=== PATIENT | female | born 1970 | race African-American/Black ===

== ENCOUNTER 2016-09-03 15:38 | Emergency (ER) | payer OTHER ==
--- NOTE | 2016-09-03 16:26 | PROVIDER DOCUMENTATION ---
HPI-General Adult - General Chief Complaint: General Adult Stated Complaint: ABNORMAL XRAY Time Seen by Provider: 09/03/16 16:11 Source: patient Allergies/Adverse Reactions: Patient Allergies Allergy/AdvReac Type Severity Reaction Status Date / Time ketorolac tromethamine * Allergy Intermediate HIVES Verified 09/03/16 16:02 [From Toradol] pregabalin [From Lyrica] Allergy Intermediate SWELLING Verified 09/03/16 16:02 sulfamethoxazole Allergy Intermediate HIVES Verified 09/03/16 16:02 [From Bactrim] tramadol HCl * [From Ultram] Allergy Intermediate HIVES Verified 09/03/16 16:02 trimethoprim [From Bactrim] Allergy Intermediate HIVES Verified 09/03/16 16:02 amlodipine besylate * AdvReac Intermediate SWELLING Verified 08/14/16 16:45 [From Norvasc] morphine AdvReac Intermediate HEADACHE Verified 09/03/16 16:02 Home Medications: Home Medication List Medication Instructions Recorded Confirmed Last Taken Type Estradiol [Estrace] 0.5 mg PO QAM 07/26/13 09/03/16 09/03/16 09:00 History Parathyroid Hormone [Natpara] 50 mcg SQ QPM 09/14/15 09/03/16 09/03/16 09:00 History Ergocalciferol (Vitamin D2) 50,000 unit PO Q7D #4 capsule 11/18/15 09/03/16 09:00 Rx [Vitamin D] Trazodone [Desyrel] 100 mg PO QHS PRN #20 tablet 02/11/16 09/03/16 09/02/16 21: 00 Rx Prochlorperazine Maleate 5 mg PO Q4H PRN PRN #10 tablet 06/01/16 09/03/16 09:00 Rx [Compazine] Amlodipine [Norvasc] 5 mg PO DAILY #30 tablet 06/07/16 09/03/16 09/03/16 09:00 Rx Carvedilol [Coreg] 25 mg PO BID #60 tablet 07/12/16 09/03/16 09/03/16 09:00 Rx Hydralazine [Apresoline] 50 mg PO TID #90 tablet 07/12/16 09/03/16 09/03/16 09: 00 Rx Tizanidine HCl [Zanaflex] 4 mg PO BID 07/24/16 09/03/16 09/03/16 14:00 History Alprazolam [Xanax] 0.5 mg PO Q12H PRN PRN #60 tablet 08/01/16 09/03/16 09/02/16 21:00 Rx Amitriptyline [Elavil] 25 mg PO QHS #30 tablet 08/01/16 09/03/16 09/03/16 09:00 Rx Metoclopramide [Reglan] 10 mg PO Q6HR #60 tablet 08/01/16 09/03/16 09/03/16 09: 00 Rx Calcitriol [Rocaltrol] 0.25 microgm PO DAILY #60 capsule 08/07/16 09/03/1609/03 09:00 Rx Calcium Acetate [Phoslo] 1,334 mg PO TID CC #60 tablet 08/07/16 09/03/16 09:00 Rx Pantoprazole [Protonix] 40 mg PO BID #60 tablet 08/07/16 09/03/16 09/02/16 21: 00 Rx Folic Acid 1 mg PO DAILY #30 tablet 08/22/16 09/03/16 09/03/16 09:00 Rx Hydrocodone/Acetaminophen [[place] 1 each PO Q4H PRN #30 tablet 08/22/16 09/03/16 09/03/16 09:00 Rx 7.5-325 Tablet] Pantoprazole [Protonix] 40 mg PO BID@0700,2100 #60 tablet 08/22/16 09/03/16 09:00 Rx Sucralfate [Carafate Liquid] 1 gm PO Q6H #120 cap 08/22/16 09/03/16 09/03/16 14: 00 Rx - History of Present Illness -Gen Adult Nature of Presenting Problems: 46 yof sent from [facility] for bleeding on left kidney. Pt has had some lower back pain to left lower back for a few days now. Pain continues to get worse. Pt has chronic renal failure on dialysis. Pt has left subclavian cath in place. Pt has some left CVA tenderness on exam. Location of Pain/Injury: reports: back Pain Radiation: reports: flank (L) Quality of Pain: reports: aching Severity: reports: moderate Onset/Duration: reports: 1 week ago Timing: reports: still present Context/Activities at Onset: reports: none. denies: light activity, moderate activity, vigorous activity, recent emotional stress, recent physical stress, recent trauma history, possible bad food, cold exposure, eating, out of country travel, rest, sleep, sexual activity, other Modifying Factors: improves with: nothing. worse with: analgesics, antacids, breathing, cold/heat therapy, coughing, defecating, eating, exercise, immobilization, lying down, massage, movement, other medication, palpation, rest , urinating, vomiting, other Associated Symptoms: reports: nausea. denies: denies symptoms, anxiety, arm pain, back/neck pain, chest pain, constipation, cough, diaphoresis, diarrhea, dizziness, EENT symptoms, fatigue, fever/chills, genitourinary problems, headaches, heartburn, joint pain, loss of appetite, malaise, muscle aches, sinus congestion/drainage, rash, seizure, shortness of breath, sensory/motor loss, pain with inspiration, swelling/mass in abdomen, syncope, vomiting, weakness, trouble walking, other Similar Symptoms Previously?: No Recently seen or treated by another doctor?: Yes (Recently seen launderer hand) - Sickle Cell Pain Related Context Sickle Cell Pain Location: denies: none, head, face, mouth, neck, chest, upper extremity, hand(s), abdomen, back, pelvis, genitalia, lower extremity, feet, upper body, lower body, generalized, other Review of Systems - Adult - REVIEW OF SYSTEMS - ADULT Constitutional: reports: see HPI. denies: no symptoms reported, chills, fever, fatique, night sweats, weight gain, weight loss, other Eyes: reports: no symptoms reported. denies: see HPI, discharge, dry eyes, decreased vision, blurred vision, double vision, eye pain, redness, other Ears, Nose, Mouth & Throat: reports: no symptoms reported. denies: see HPI, ear discharge, ear pain, hearing loss, tinnitus, epistaxis, sinus problem, nose pain, loose teeth, mouth/dental pain, mouth swelling, hoarseness, throat pain, throat swelling, other Cardiovascular: reports: no symptoms reported. denies: see HPI, chest pain, edema, heart murmur, irregular heart rate, orthopnea, palpitations, poor circulation, PND, syncope, other Respiratory: reports: no symptoms reported. denies: see HPI, chronic cough, cough, dyspnea on exertion, excessive sputum production, hemoptysis, pleurisy, shortness of breath, wheezing, other Gastrointestinal: reports: see HPI, nausea. denies: no symptoms reported, abdominal pain, hematemesis, constipation, diarrhea, difficulty swallowing, frequent heartburn, poor appetite, rectal bleeding, vomiting, other Genitourinary: reports: see HPI, flank pain. denies: no symptoms reported, dysuria, discharge, frequency, frequent UTI's, hematuria, hesitency, incontinence, urinary retention, urgency, other Musculoskeletal: reports: see HPI, back pain. denies: no symptoms reported, bone pain, frequent leg cramps, joint pain, joint swelling, muscle aches, muscle weakness, neck pain, other Integumentary: reports: no symptoms reported. denies: see HPI, hives, hair loss , itching, mole changes, nail changes, rash, skin sores/ulcer, skin thickening, other Neurological: reports: no symptoms reported. denies: see HPI, ataxia, dizziness /vertigo, headache/migraines, loss of balance, numbness, paresthesia, seizure, slurred speech, syncope, tremors, other Psychiatric: reports: no symptoms reported. denies: see HPI, anxiety, anti- depressant use, alcohol/drug dependence, depression, emotional problems, insomnia, panic attacks, suicidal thoughts, other Endocrine: reports: no symptoms reported. denies: see HPI, change in skin pigment, excessive sweating, goiter, cold intolerance, heat intolerance, increased hunger, increased thirst, polyuria, other All Other Systems: Reviewed and Negative Past History - Adult - PAST MEDICAL HISTORY-ADULT Review of Records: reports: Old Records Reviewed, Nursing Assessment Review, Medications Reviewed, Social history reviewed & non-contributory. Cardiovascular: reports: HTN Gastrointestinal: reports: GERD, ulcer Genitourinary: reports: dialysis (T,Th, Sat), kidney disease Musculoskeletal: reports: chronic pain, intervertebral disc disease Neurological: reports: headaches/migraines Endocrine/Immune: reports: Diabetes - PRIOR SURGERIES/PROCEDURES Surgical/Procedure History: reports: cholecystectomy, hysterectomy, , hernia repair, orthopedic (extremity), gastric bypass - PRIOR HOSPITALIZATIONS Prior Hospitalizations: reports: for other non-related - IMMUNIZATION STATUS Childhood Immunizations: See Nurse Assessment Flu Vaccine: See Nurse Assessment - FAMILY HISTORY Family History: reviewed, not pertinent Physical Exam-General - PHYSICAL EXAM-ADULT Initial Vital Signs Reviewed: Yes - CONSTITUTIONAL General Appearance: appears well, alert, no apparent distress. negative: mild distress, moderate distress, severe distress, cachetic, obese, thin, anxious, lethargic, slow to respond, obtunded, combative, other - EYES Eyes: PERRL/EOMI, pink conjunctivae, fundi clear, no AV nicking. negative: anisocoria, conjuctival exudate, EOM palsy, meningismus, pale conjunctivae, photophobia, sclera injected, scleral icterus, subconjunctival hemorrhage, sunken eyes, other - HEAD, EARS, NOSE, MOUTH & THROAT HENMT: normocephalic/atraumatic, moist mucous membranes, normal ENT inspection, TMs normal, pharynx normal. negative: angioedema, dental decay, hearing deficit , pharyngeal erythema, tonsillar exudate, TM abnormal, TM obscurred by cerumen, frontal tenderness, maxillary tenderness, other - NECK Neck: non-tender, full range of motion, supple, normal inspection. negative: Brudzinski's sign, carotid bruit, C-spine tenderness, limited range of motion, lymphadenopathy, meningismus, trachial deviation, tender lateral, tender midline , thyromegaly, other - RESPIRATORY Respiratory: chest non-tender, lungs clear, normal breath sounds, no pleuratic chest pain, no respiratory distress, no accessory muscle use. negative: respiratory distress, decreased breath sounds, accessory muscle use, crackles, rales, rhonchi, stridor, wheezing, dull on percussion, prolonged expiration, pain on inspiration, plerual rub, retractions, splinting, decreased rate, increased rate, crepitus, other - CARDIOVASCULAR Cardiovascular: normal peripheral pulses, regular rate, rhythm, no edema, no gallop, no JVD, no murmur. negative: JVD, bradycardia, tachycardia, diastolic murmur, systolic murmur, gallop/S3, gallop/S4, extra beats, friction rub, irregularly irregular, PMI displaced laterally, other - CHEST (BREASTS) Chest/Breast: deferred. negative: normal breast inspection, no masses/lumps, no tenderness, nipple discharge, tenderness, mass/lump noted, other - GASTROINTESTINAL (ABDOMEN) Abdominal Exam: normal bowel sounds, non tender, soft, no organomegaly, no pulsatile mass. negative: abdominal bruit, abnormal bowel sounds, distended, guarding, rigid, rebound, tenderness, hernia, mass, hepatomegaly, spleenomegaly , McBurney's point tenderness, Ayala's sign, obturator sign, prominent aortic pulsations, psoas, Rovsing's sign, other - GENITOURINARY Female Genitalia/Pelvic Exam: deferred. negative: external exam normal, speculum exam normal, bimanual exam normal, no cerv. motion tender, no masses, active bleeding, blood, cervicitis, discharge, herpes-like ulcerations, lesions , mass, tender w/ cervical motion, tender adnexa, tender uterus, ulcers, other Rectal Exam: deferred. negative: normal exam, normal rectal tone, black stool, blood streaked stool, decreased tone, hemorrhoids, mass, prostate enlarged/ nodule, tenderness, other Hemoccult Exam: deferred - LYMPHATIC Lymphatic: no adenopathy. negative: axilla node tender, cervical node tenderness, inguinal node tender, enlargement, striations, streaking, other - MUSCULOSKELETAL Back Exam: normal inspection, CVA tenderness. negative: no CVA tenderness, no vertebral tenderness, decreased range of motion, ecchymosis, kyphosis, lordosis , muscle spasm, scoliosis, swelling, vertebral tenderness, other Extremity: normal range of motion, non-tender, normal gait, normal inspection, no pedal edema, no calf tenderness, normal capillary refill. negative: pelvis stable, abnormal NV exam, calf tenderness, deformity, erythema, inflammation, joint effusion, pulse deficit, pedal edema, slow capillary refill, swelling, tenderness, other Peripheral Pulses: radial (R): 2+, radial (L): 2+, dorsalis-pedis (R): 2+, dorsalis-pedis (L): 2+ - SKIN Integumentary: normal color, normal turgor, warm/dry. negative: abrasion(s), blanching, cyanosis, diaphoresis, decubitus, dependent lividity, ecchymosis, embolic lesions, erythema, signs of IVDA, jaundice, laceration(s), mottled, pallor, petechiae, purpura, rash, swelling, tenderness, warm, zoster-like rash, other - NEUROLOGIC Neurologic: grossly normal, no motor/sensory deficits. negative: abnormal cerebellar tests, abnormal brinell tester II-XII, abnormal gait, aphasia, EOM palsy, facial droop, focal weakness, motor weakness, sensory deficit, negative romberg' s sign, positive romberg's sign, other - PSYCHIATRIC Psych/Mental Status: normal mood/affect, normal thought content, normal thought process, oriented x 3. negative: disoriented x 3, anxious, disheveled, depressed affect, paranoid, tearful, other Progress - PLAN OF CARE/RESULTS Progress/Plan/Lab Results: Laboratory Tests 09/03/16 09/03/16 09/03/16 16:27 16:27 16:27 WBC 10.61 RBC 2.86 L Hgb 8.4 L Hct 26.5 L MCV 92.7 MCH 29.4 MCHC 31.7 L RDW Std Deviation 14.9 H Plt Count 312 MPV 8.6 Immature Gran % (Auto) 1.3 H Neut % (Auto) 72.3 Lymph % (Auto) 16.4 L Rice % (Auto) 7.7 Eos % (Auto) 1.9 Baso % (Auto) 0.4 Immature Gran # (Auto) 0.14 H Neut # (Auto) 7.67 H Lymph # (Auto) 1.74 Rice # (Auto) 0.82 H Eos # (Auto) 0.20 Baso # (Auto) 0.04 PT 11.3 INR 1.07 PTT (Actin FS) 29.2 Sodium 138 Potassium 4.3 Chloride 96 L Carbon Dioxide 26 Anion Gap 16 BUN 42 H Creatinine 7.5 H Estimated GFR/1.73 m2 7 BUN/Creatinine Ratio 6 Glucose 95 Calculated Osmolality 286 Calcium 7.8 L Total Bilirubin 0.36 AST 22 ALT 16 Alkaline Phosphatase 53 Total Protein 6.8 Albumin 3.8 Globulin 3.0 Albumin/Globulin Ratio 1.3 Orders Category Date Time Status IV Insertion ORDERED Care 09/03/16 16:[address] ABD WITH IV CONTRAST ONLY [CT] Stat Exams 09/03/16 19:05 Taken CBC WITH ELECTRONIC DIFF [HEME] Stat Lab 09/03/16 16:27 Completed COMPREHENSIVE METABOLIC PANEL [CHEM] Stat Lab 09/03/16 16:27 Completed PROTIME WITH INR [COAG] Stat Lab 09/03/16 16:27 Completed PTT [COAG] Stat Lab 09/03/16 16:27 Completed Hydromorphone [Dilaudid] Med 09/03/16 21:06 Once 1 mg IV NOW ONE Ondansetron [Zofran] Med 09/03/16 21:06 Once 4 mg IV NOW ONE Vital Signs Temp Pulse Resp BP Pulse Ox 09/03/16 15:51 98.9 F 106 H 20 149/81 99 ketorolac tromethamine * [From Toradol] Allergy (Intermediate, Verified 16:02) HIVES pregabalin [From Lyrica] Allergy (Intermediate, Verified 09/03/16 16:02) SWELLING sulfamethoxazole [From Bactrim] Allergy (Intermediate, Verified 09/03/16 16:02) HIVES tramadol HCl * [From Ultram] Allergy (Intermediate, Verified 09/03/16 16:02) HIVES trimethoprim [From Bactrim] Allergy (Intermediate, Verified 09/03/16 16:02) HIVES amlodipine besylate * [From Norvasc] Adverse Reaction (Intermediate, Verified 16:45) SWELLING morphine Adverse Reaction (Intermediate, Verified 09/03/16 16:02) HEADACHE Estradiol [Estrace] 0.5 mg PO QAM 07/26/13 Parathyroid Hormone [Natpara] 50 mcg SQ QPM 09/14/15 Ergocalciferol (Vitamin D2) [Vitamin D] 50,000 unit PO Q7D #4 capsule 11/18/15 Trazodone [Desyrel] 100 mg PO QHS PRN #20 tablet 02/11/16 Prochlorperazine Maleate [Compazine] 5 mg PO Q4H PRN PRN #10 tablet 06/01/16 Amlodipine [Norvasc] 5 mg PO DAILY #30 tablet 06/07/16 Carvedilol [Coreg] 25 mg PO BID #60 tablet 07/12/16 Hydralazine [Apresoline] 50 mg PO TID #90 tablet 07/12/16 Tizanidine HCl [Zanaflex] 4 mg PO BID 07/24/16 Alprazolam [Xanax] 0.5 mg PO Q12H PRN PRN #60 tablet 08/01/16 Amitriptyline [Elavil] 25 mg PO QHS #30 tablet 08/01/16 Metoclopramide [Reglan] 10 mg PO Q6HR #60 tablet 08/01/16 Calcitriol [Rocaltrol] 0.25 microgm PO DAILY #60 capsule 08/07/16 Calcium Acetate [Phoslo] 1,334 mg PO TID CC #60 tablet 08/07/16 Pantoprazole [Protonix] 40 mg PO BID #60 tablet 08/07/16 Folic Acid 1 mg PO DAILY #30 tablet 08/22/16 Hydrocodone/Acetaminophen [[place] 7.5-325 Tablet] 1 each PO Q4H PRN #30 tablet Pantoprazole [Protonix] 40 mg PO BID@0700,2100 #60 tablet 08/22/16 Sucralfate [Carafate Liquid] 1 gm PO Q6H #120 cap 08/22/16 Laboratory 09/03/16 09/03/16 09/03/16 16:27 16:27 16:27 WBC 10.61 RBC 2.86 L Hgb 8.4 L Hct 26.5 L MCV 92.7 MCH 29.4 MCHC 31.7 L RDW Std Deviation 14.9 H Plt Count 312 MPV 8.6 Immature Gran % (Auto) 1.3 H Neut % (Auto) 72.3 Lymph % (Auto) 16.4 L Rice % (Auto) 7.7 Eos % (Auto) 1.9 Baso % (Auto) 0.4 Immature Gran # (Auto) 0.14 H Neut # (Auto) 7.67 H Lymph # (Auto) 1.74 Rice # (Auto) 0.82 H Eos # (Auto) 0.20 Baso # (Auto) 0.04 PT 11.3 INR 1.07 PTT (Actin FS) 29.2 Sodium 138 Potassium 4.3 Chloride 96 L Carbon Dioxide 26 Anion Gap 16 BUN 42 H Creatinine 7.5 H Estimated GFR/1.73 m2 7 BUN/Creatinine Ratio 6 Glucose 95 Calculated Osmolality 286 Calcium 7.8 L Total Bilirubin 0.36 AST 22 ALT 16 Alkaline Phosphatase 53 Total Protein 6.8 Albumin 3.8 Globulin 3.0 Albumin/Globulin Ratio 1.3 - CT/MRI 1 CT Study: Abdomen Impression: Abnormal Comparison with other Films: no changes (Left Renal sub-capsular Hematoma no changes from previous PET/CT done previously today by DEISY. Read by Radiologist) Departure - Departure Time of Disposition Order: 21:07 DIAGNOSIS: Renal hematoma, left Qualifiers: Encounter type: initial encounter Qualified Code(s): S37.012A - Minor contusion of left kidney, initial encounter Disposition: HOME 01 Certified Medical Emergency: Emergent Condition: Stable Additional Instructions: Call Primary Care Provider Tuesday to schedule follow up. ED Follow Up Instructions: You have been treated by a care provider in the Emergency Department. These instructions are being provided to you so you can have an understanding of how to care for yourself upon discharge. Upon discharge from the Emergency Department, you are responsible for making arrangements for follow-up care by a physician of your choice. Take all prescribed medications as directed. Return to the Emergency Department immediately for any new or worsening symptoms. You may call the Physician Referral phone number at [phone] to obtain a list of Physicians who are taking new patients. Referrals: Venkat Almeida MD [Primary Care Provider] - Instructions: Hematoma, [id number] Attestation - Physician/ MENDOZA Attestation Patient care was provided by Advanced Practice Provider:: Yes Advanced Practice Provider:: Kenneth Lopez Advanced Practice Provider documentation review:: The Mid-level provider documentation, treatment plan and medical decision making was reviewed by the physician who agrees with all treatment and medical decision making by the P.
[2016-09-03 16:43] LABS: MANUAL DIFF NEEDED? NO
[2016-09-03 16:55] LABS: INR 1.07; PROTIME 11.3 Seconds (9.2-11.7); PTT 29.2 Seconds (22.0-36.0)
[2016-09-03 17:07] LABS: ALBUMIN 3.8 g/dL (3.5-5.0); CALCIUM 7.8 mg/dL (8.8-10.2); POTASSIUM 4.3 mmol/L (3.5-5.1); TOTAL BILIRUBIN 0.36 mg/dL (0.20-1.00); TOTAL PROTEIN 6.8 g/dL (6.3-8.3)
[2016-09-03 17:54] LABS: BASO% 0.4 % (0.0-0.8); EOS% 1.9 % (0.0-10.0); HEMATOCRIT 26.5 % (37.0-47.0); HEMOGLOBIN 8.4 g/dL (12.0-16.0); IMM GRAN# 0.14 X1000 (0.0-0.04); IMM GRAN% 1.3 % (0.0-0.5); LYMPH# 1.74 X1000 (1.2-3.4); LYMPH% 16.4 % (20.5-51.1); MCH 29.4 PG (27-31); MCHC 31.7 g/dL (33-37); MCV 92.7 FL (81-99); MONO# 0.82 X1000 (0.11-0.59); MONO% 7.7 % (1.7-9.3); MPV 8.6 FL (7.4-10.4); NEUT% 72.3 % (42.2-75.2); PLT 312 X1000 (130-400); RBC 2.86 XMIL (4.2-5.4)
[2016-09-03] MEDS ORDERED: DILAUDID IV ONE (21:06)
[2016-09-03] MEDS ORDERED: ZOFRAN IV ONE (21:06)
[2016-09-03] MEDS ORDERED: DILAUDID IM ONE (21:56)
[2016-09-03] MEDS ORDERED: ZOFRAN ODT PO ONE (21:56)
[2016-09-03 21:57] VITALS: BP 151/101
--- NOTE | 2016-09-04 10:28 | Diag Imaging Result Document ---
PROCEDURE NAME: CT ABD WITH IV CONTRAST ONLY - 09/03/2016 CT OF THE ABDOMEN WITH INTRAVENOUS CONTRAST: FINDINGS: There is atelectasis present in the right posterior lower lobe which is somewhat improved since the previous thoracic CT of 08/16/2016. The left lobe is almost completely cleared. There is a large subcapsular hematoma in the left kidney. Some of this may extend into the perinephric space. The enhancing rim of renal parenchyma is seen anteromedially. The hematoma measures at least 8.4 cm in transverse dimension on image 48. The right kidney is markedly atrophic in appearance. There are postsurgical changes in the stomach and gallbladder fossa. The common bile duct measures over 9 mm but no definite stones or masses are demonstrated. There is a vena cava filter. The appendix is normal in appearance. There is a large amount of stool present in the right colon. The left perinephric/subcapsular hematoma was not present on 08/16/2016. Compared to the previous PET-CT of 09/03/2016 which was performed at 1240 hours, there has been no appreciable change in the hematoma. IMPRESSION: Left subcapsular hematoma. Constipation.
== END 2016-09-03 22:09 | disposition home or self-care (01) ==
LOC: ED 15:38
DX: S37.012A Minor contusion of left kidney, initial encounter (principal); M54.5 Low back pain; R10.9 Unspecified abdominal pain; R11.0 Nausea; G89.29 Other chronic pain; R51 Headache; E11.9 Type 2 diabetes mellitus without complications; Z79.899 Other long term (current) drug therapy; I12.0 Hypertensive chronic kidney disease with stage 5 chronic kidney disease or end stage renal disease; N18.6 End stage renal disease; K21.9 Gastro-esophageal reflux disease without esophagitis; Z99.2 Dependence on renal dialysis; Z98.84 Bariatric surgery status
CPT/HCPCS: 74160; 80053; 85025; 85610; 85730; J1170; Q9967

== ENCOUNTER 2016-09-22 11:20 | Day surgery (SDC) | payer OTHER ==
[2016-09-22] MEDS ORDERED: 1/2 NS 500 ML ONE (12:06)
[2016-09-22 12:47] LABS: MANUAL DIFF NEEDED? NO
[2016-09-22 12:49] LABS: BASO% 0.5 % (0.0-0.8); EOS# 0.26 X1000 (0.0-0.7); EOS% 4.7 % (0.0-10.0); HEMATOCRIT 34.4 % (37.0-47.0); HEMOGLOBIN 10.8 g/dL (12.0-16.0); IMM GRAN# 0.02 X1000 (0.0-0.04); IMM GRAN% 0.4 % (0.0-0.5); LYMPH# 1.31 X1000 (1.2-3.4); LYMPH% 23.9 % (20.5-51.1); MCH 29.1 PG (27-31); MCHC 31.4 g/dL (33-37); MCV 92.7 FL (81-99); MONO# 0.32 X1000 (0.11-0.59); MONO% 5.8 % (1.7-9.3); MPV 9.4 FL (7.4-10.4); NEUT% 64.7 % (42.2-75.2); PLT 141 X1000 (130-400); RBC 3.71 XMIL (4.2-5.4)
[2016-09-22 13:08] LABS: IRON SATURATION 37 %; TIBC 229 ug/dL; TOTAL IRON 84 ug/dL (49-151); UNBOUND IRON 145 ug/dL (112-346)
[2016-09-22 13:12] LABS: INR 1.04; PROTIME 10.6 Seconds (9.2-11.7)
[2016-09-22] MEDS ORDERED: MYLICON DROPS (DOSE) MISC ONE (13:38)
[2016-09-22] MEDS ORDERED: FENTANYL ONE (14:17)
[2016-09-22] MEDS ORDERED: DIPRIVAN 1% ONE (14:18)
[2016-09-22] MEDS ORDERED: XYLOCAINE-MPF 2% ONE (15:56)
[2016-09-22] MEDS ORDERED: ZOFRAN ONE (15:56)
[2016-09-22 16:17] VITALS: BP 152/98
--- NOTE | 2016-09-23 03:32 | OPERATIVE NOTE ---
PROCEDURE DATE: 09/22/2016 REFERRING PHYSICIAN: Venkat Almeida MD. PRIMARY CARE PHYSICIAN: Jasmina Freeman MD. INDICATIONS FOR PROCEDURE: 1. Progressive anemia despite transfusion. 2. Dysphasia. 3. Epigastric pain. 4. History of a gastrojejunal ulcer. 5. History of Francisco [id number] gastric bypass. 6. History of bleeding AVMs on recent endoscopy. PROCEDURE PERFORMED: Esophagogastroduodenoscopy. CONSENT: Informed consent was obtained from the patient prior to the procedure. The risks, benefits, and alternatives were discussed. MEDICATION: The patient received monitored anesthesia care. It should be noted that the patient had large sedation requirements and aroused easily throughout the procedure. PERFORMING PHYSICIAN: Meghana Hernandez MD. ASSISTANTS: 1. ST. Jessica 2. Rubi Scales RN. 3. Camilla Romero CRNA. 4. Rosalio Rutherford MD (anesthesia). COMPLICATIONS: There were no complications. ESTIMATED BLOOD LOSS: Less than 1 mL. SPECIMENS REMOVED: None. FINDINGS: After sedation was achieved, the upper endoscope was inserted to the mid efferent jejunum. The hypopharynx and tubular esophagus appeared endoscopically normal. The GE junction was measured at 35 cm from the incisors. The gastric pouch spanned from 35-42 cm. In the pouch, there was nonerosive gastritis. There was no stigmata of bleeding. The gastrojejunal ulcer that was previously identified was present. It should be noted that the anastomosis remained severely inflamed but the actual ulcer had decreased in size by approximately 50%. There was new jejunitis in the afferent limb of the jejunum. The efferent limb appeared grossly normal. After the exam was complete, we were attempting to take biopsies when the patient aroused during sedation. It was elected to withdraw the scope without proceeding with biopsy. The lumen was decompressed and the scope was removed without incident. IMPRESSION: 1. Gastrojejunal anastomotic ulcer. 2. Nonerosive gastritis. 3. Nonerosive jejunitis. RECOMMENDATION: 1. Continue Protonix 40 mg daily. 2. I will repeat a course of Carafate 1 g p.o. 4 times a day for 8 weeks only in light of her renal disease. 3. We will proceed with a colonoscopy as previously scheduled.
--- NOTE | 2016-09-23 03:40 | OPERATIVE NOTE ---
PROCEDURE DATE: 09/22/2016 REFERRING PHYSICIAN: Venkat Almeida MD. PRIMARY CARE PHYSICIAN: Jasmina Freeman MD. INDICATION FOR PROCEDURE: 1. Anemia. 2. Epigastric pain. 3. History of colon polyps. 4. History of bleeding AVMs. PROCEDURE PERFORMED: Colonoscopy with biopsy. CONSENT: Informed consent was obtained from the patient prior to the procedure. The risks, benefits, and alternatives were discussed. MEDICATION: The patient received monitored anesthesia care. It should be noted that there was extreme difficulty in maintaining sedation throughout the procedure. PERFORMING PHYSICIAN: Meghana Hernandez MD. ASSISTANTS: 1. ST Jessica. 2. Rubi Scales RN. 3. Camilla Romero CRNA. 4. Rosalio Rutherford MD (anesthesia). COMPLICATIONS: There were no complications. ESTIMATED BLOOD LOSS: Less than 1 mL. SPECIMENS REMOVED: 1. Random colon biopsy. 2. Stool aspirate. CECAL INTUBATION TIME: 10 minutes. WITHDRAWAL TIME: 11 minutes. PREP QUALITY: Very poor. FINDINGS: After the EGD was performed, the patient was repositioned. The pediatric colonoscope was inserted to the cecum. Approximately 40% of the cecal base and the ascending colon were obscured by fecal residue. After washing, the cecal base appeared inflamed with nonspecific erythema. Upon withdrawal, the ileocecal valve and ascending colon also appeared inflamed. There was bowel wall edema and copious amounts of fecal residue. Upon further withdrawal, there were pockets where 30-40% of the lumen was obscured by fecal residue. The stool was thick and tenacious, and difficult to evacuate. It frequently plugged the scope. Random biopsies were taken throughout the colon as there were scattered patches of inflammation. Upon further withdrawal, there were nonbleeding AVMs visualized. Unfortunately, the multiple small polyps seen on previous endoscopy were not well visualized today due to poor bowel prep. After the random biopsies were taken, some of the stool was aspirated for stool studies including culture and stool lactoferrin. In the upper rectum, there were grade 2 internal hemorrhoids. On retroflexed view, there were medium external hemorrhoids. After the exam was complete, the lumen was decompressed and the scope was removed without incident. IMPRESSION: 1. Nonspecific colitis. 2. Nonbleeding arteriovenous malformations. 3. Poor bowel prep. 4. Grade 2 internal hemorrhoids. 5. Medium external hemorrhoids. RECOMMENDATION: 1. Await biopsy results. 2. Await stool study results. 3. Begin Levaquin 750 mg and Flagyl 250 mg q.8 hours for the next 10 days. 4. We will repeat a colonoscopy in 12 months to assess for the remaining polyps that were seen on the previous exam. 5. Consider a capsule endoscopy if her hemoglobin drops or fails to improve. 6. We will have the patient return to clinic in 6 weeks to assess interval progress.
== END 2016-09-22 15:55 | disposition home or self-care (01) ==
LOC: ENDO 11:20
PROVIDERS: ATTEND Internal Medicine Gastroenterology
DX: K52.89 Other specified noninfective gastroenteritis and colitis (principal); K28.3 Acute gastrojejunal ulcer without hemorrhage or perforation; K29.70 Gastritis, unspecified, without bleeding; N18.6 End stage renal disease; D63.1 Anemia in chronic kidney disease; Z98.84 Bariatric surgery status; K63.5 Polyp of colon; R10.13 Epigastric pain; K55.20 Angiodysplasia of colon without hemorrhage; K64.1 Second degree hemorrhoids; K64.4 Residual hemorrhoidal skin tags; Z86.010 Personal history of colon polyps; R13.12 Dysphagia, oropharyngeal phase; K57.30 Diverticulosis of large intestine without perforation or abscess without bleeding; I69.359 Hemiplegia and hemiparesis following cerebral infarction affecting unspecified side; D57.3 Sickle-cell trait; Z99.2 Dependence on renal dialysis; I10 Essential (primary) hypertension; F41.9 Anxiety disorder, unspecified; Z87.442 Personal history of urinary calculi; Z79.899 Other long term (current) drug therapy
CPT/HCPCS: 82728; 83540; 83550; 83630; 85025; 85610; 87045; 87046; 87177; 87324; 88305; 88313; 89055; J2405; J3010

== ENCOUNTER 2017-02-19 11:09 | Inpatient (IN) ==
[2017-02-19] MEDS ORDERED: VANCOMYCIN 1 GM/NS 1 GM/250 ML IVPB IV ONE (11:56)
--- NOTE | 2017-02-19 12:34 | Diag Imaging Result Doc PS360 ---
EXAM: CHEST-2 VIEWS HISTORY: peritonitis TECHNIQUE: Two views of the chest COMMENT: There is a double-lumen internal jugular catheter on the left with its tip in the superior vena cava and right atrium. The appearance of the chest has not changed significantly since 10/18/2016. IMPRESSION: Stable chest. Electronically signed by Andre Reilly 02/19/2017 12:32 PM
[2017-02-19] MEDS ORDERED: MORPHINE IV ONE (12:48)
[2017-02-19] MEDS ORDERED: ZOFRAN IV ONE (12:48)
[2017-02-19] MEDS ORDERED: DILAUDID IV ONE (12:57)
[2017-02-19] MEDS ORDERED: CATAPRES PO ONE (14:02)
[2017-02-19 14:54] LABS: MANUAL DIFF NEEDED? NO
[2017-02-19 14:58] LABS: BASO% 0.6 % (0.0-0.8); EOS# 0.31 X1000 (0.0-0.7); EOS% 6.5 % (0.0-10.0); HEMATOCRIT 31.8 % (37.0-47.0); HEMOGLOBIN 10.1 g/dL (12.0-16.0); IMM GRAN# 0.02 X1000 (0.0-0.04); IMM GRAN% 0.4 % (0.0-0.5); LYMPH# 1.32 X1000 (1.2-3.4); LYMPH% 27.8 % (20.5-51.1); MCH 29.1 PG (27-31); MCHC 31.8 g/dL (33-37); MCV 91.6 FL (81-99); MONO# 0.43 X1000 (0.11-0.59); MONO% 9.1 % (1.7-9.3); MPV 9.9 FL (7.4-10.4); NEUT% 55.6 % (42.2-75.2); PLT 195 X1000 (130-400); RBC 3.47 XMIL (4.2-5.4)
[2017-02-19 15:07] LABS: INR 1.03; PROTIME 10.8 Seconds (9.2-11.7); PTT 29.9 Seconds (22.0-36.0)
[2017-02-19 15:13] LABS: ALBUMIN 3.5 g/dL (3.5-5.0); CALCIUM 8.9 mg/dL (8.8-10.2); POTASSIUM 4.6 mmol/L (3.5-5.1); TOTAL BILIRUBIN 0.27 mg/dL (0.20-1.00); TOTAL PROTEIN 6.6 g/dL (6.3-8.3)
--- NOTE | 2017-02-19 16:08 | Diag Imaging Result Doc PS360 ---
EXAM: ABDOMEN/PELVIS W/O CONTRAST HISTORY: recent peritoneal cath and pain TECHNIQUE: CT urogram without contrast COMMENT: There is atelectasis and/or fibrosis in the posterior right lower lobe. This was not as well demonstrated on the previous study of 10/06/2016 there has the majority of the right lower lobe was not included on the previous study. There are postsurgical changes consistent with gastric bypass.. There is also been cholecystectomy. Both kidneys are markedly atrophic. There has been marked diminishment in the hematoma which was present in the left perinephric space on the previous study. There is a fairly large amount of stool in the right colon. This was also the case on the previous study. Since the previous examination, there has been placement of a peritoneal dialysis catheter in the pelvis just above the urinary bladder. There is gas in the rectum. Small bowel is not distended. There is a small fluid collection below the level of the umbilicus surrounding the peritoneal dialysis catheter as it passes through the fascia and superficial to the abdominal wall musculature. This may be a small hematoma. There is no evidence of pneumoperitoneum. There is no significant free fluid. IMPRESSION: Postsurgical changes and constipation. Electronically signed by Andre Reilly 02/19/2017 4:05 PM
--- NOTE | 2017-02-19 16:46 | PROVIDER DOCUMENTATION ---
This chart was entered by Praveena Jolley Scribe, acting as scribe for Zenobia Corado MD. HPI-Abdominal Pain/GI Problem - General Chief Complaint: Abdominal Pain Stated Complaint: ABD PAIN Time Seen by Provider: 02/19/17 11:28 Source: patient Allergies/Adverse Reactions: Patient Allergies Allergy/AdvReac Type Severity Reaction Status Date / Time ketorolac tromethamine * Allergy Intermediate HIVES Verified 02/19/17 12:42 [From Toradol] pregabalin [From Lyrica] Allergy Intermediate SWELLING Verified 02/19/17 12:42 sulfamethoxazole Allergy Intermediate HIVES Verified 02/19/17 12:42 [From Bactrim] tramadol HCl * [From Ultram] Allergy Intermediate HIVES Verified 02/19/17 12:42 trimethoprim [From Bactrim] Allergy Intermediate HIVES Verified 02/19/17 12:42 morphine AdvReac Intermediate HEADACHE Verified 02/19/17 12:42 Home Medications: Home Medication List Medication Instructions Recorded Confirmed Last Taken Type Carvedilol [Coreg] 25 mg PO BID #60 tablet 07/12/16 02/19/17 02/19/17 09:00 Rx Alprazolam [Xanax] 2 mg PO BID 02/07/17 02/19/17 02/08/17 16:00 History Amlodipine Besylate 10 mg PO DAILY 02/07/17 02/19/17 02/19/17 09:00 History Haloperidol 0.5 - 1 tab PO DAILY 02/07/17 02/19/17 02/08/17 20:00 History Metaxalone 800 mg PO BID PRN PRN 02/07/17 02/19/17 02/08/17 20:00 History Sertraline HCl 100 mg PO QAM 02/07/17 02/19/17 02/09/17 07:30 History Hydrocodone/APAP 7.5 mg/325 mg 1 each PO Q6H PRN PRN #20 tablet 02/09/17 Unknown Rx [[place]ixon-7.5] - History of Present Illness-ABD Nature of Presenting Problems: Pt is a 46 year old female who came to the ED with a cc of peritoneal dialysis port was put in one week ago. Pt now has pain and drainage. Pt saw renal doctor on . worsening pain and drainage. denies n/v. drainage thicker. On exam pt is anxious about touching her abdomen. Pt abdomen is soft but tender. The drainage is yellow/greenish. The cultures were reviewed by Dr. Corado and there was no evidence of peritoneal fluid, but positive for ecoli. Abdominal Pain Onset Location: reports: other (around peritoneal port) Quality of Pain: reports: sharp Severity in ED: reports: mild Onset/Duration: reports: 2 days ago Timing: reports: still present Associated Symptoms: reports: denies symptoms Last BM: unsure Dark Stools Present?: reports: none noticed Rectal Bleeding: reports: none Rectal Pain: reports: none Bruising or Bleeding Gums?: No Similar Symptoms Previously?: Yes Recently seen or treated by another doctor?: Yes Review of Systems - Adult - REVIEW OF SYSTEMS - ADULT Constitutional: denies: chills, fever Eyes: reports: no symptoms reported Ears, Nose, Mouth & Throat: reports: no symptoms reported Cardiovascular: denies: chest pain, irregular heart rate Respiratory: reports: no symptoms reported Gastrointestinal: reports: abdominal pain. denies: diarrhea, nausea, vomiting Genitourinary: reports: no symptoms reported Musculoskeletal: reports: no symptoms reported Integumentary: reports: other (infected peritoneal port w/ drainage.). denies: itching, nail changes Neurological: reports: no symptoms reported Psychiatric: reports: no symptoms reported Endocrine: reports: no symptoms reported Hematologic/Lymphatic: reports: no symptoms reported Allergic/Immunologic: reports: no symptoms reported All Other Systems: Reviewed and Negative Past History - Adult - PAST MEDICAL HISTORY-ADULT Review of Records: reports: Old Records Reviewed, Nursing Assessment Review Major Childhood Illnesses: reports: denies history Cardiovascular: reports: HTN Respiratory: reports: denies history Gastrointestinal: reports: GERD, ulcer Obstetrical/Gynecological: reports: denies history Genitourinary: reports: dialysis (T,, Tue), kidney disease Musculoskeletal: reports: chronic pain, intervertebral disc disease Neurological: reports: CVA, headaches/migraines Psychiatric: reports: depression Endocrine/Immune: reports: Diabetes Other Conditions: reports: denies history - PRIOR SURGERIES/PROCEDURES Surgical/Procedure History: reports: cholecystectomy, hysterectomy, , hernia repair, orthopedic (extremity), gastric bypass - PRIOR HOSPITALIZATIONS Prior Hospitalizations: reports: for other non-related - IMMUNIZATION STATUS Childhood Immunizations: See Nurse Assessment Flu Vaccine: See Nurse Assessment - FAMILY HISTORY Family History: reviewed, not pertinent Physical Exam-General - PHYSICAL EXAM-ADULT Initial Vital Signs Reviewed: Yes - CONSTITUTIONAL General Appearance: alert, mild distress - EYES Eyes: PERRL/EOMI, pink conjunctivae - HEAD, EARS, NOSE, MOUTH & THROAT HENMT: normocephalic/atraumatic, moist mucous membranes - NECK Neck: non-tender, full range of motion - RESPIRATORY Respiratory: chest non-tender, lungs clear - CARDIOVASCULAR Cardiovascular: normal peripheral pulses, regular rate, rhythm - GASTROINTESTINAL (ABDOMEN) Abdominal Exam: tenderness (around peritoneal port with yellowish greenish drainage) - MUSCULOSKELETAL Back Exam: normal inspection, no CVA tenderness Extremity: normal range of motion - SKIN Integumentary: normal color, normal turgor - NEUROLOGIC Neurologic: grossly normal - PSYCHIATRIC Psych/Mental Status: normal mood/affect, normal thought content, normal thought process, oriented x 3 Progress - PLAN OF CARE/RESULTS Progress/Plan/Lab Results: Vital Signs - 8 hr 02/19/17 11:14 Temperature 98.3 F Pulse Rate 99 H Respiratory Rate 20 Blood Pressure 220/140 O2 Sat by Pulse Oximetry 100 Orders Category Date Time Status Cardiac Monitoring DIRECTED Care 02/19/17 11:56 Active IV Insertion ORDERED Care 02/19/17 11:56 Active Notify MD of + Sepsis Screen NOW Care 02/19/17 11:56 Active CHEST-2 VIEWS [RAD] Stat Exams 02/19/17 11:56 Ordered BLOOD CULTURE [BLDCUL] Stat Lab 02/19/17 11:56 Uncollected CBC WITH DIFF [HEME] Stat Lab 02/19/17 11:56 Uncollected CK PROFILE [SP CHEM] Stat Lab 02/19/17 11:56 Uncollected COMPREHENSIVE METABOLIC PANEL [CHEM] Stat Lab 02/19/17 11:56 Uncollected LACTATE, PLASMA [CHEM] Stat Lab 02/19/17 11:56 Uncollected PROTIME WITH INR [COAG] Stat Lab 02/19/17 11:56 Uncollected PTT [COAG] Stat Lab 02/19/17 11:56 Uncollected TROPONIN T Stat Lab 02/19/17 11:56 Uncollected Vancomycin 1 gm/Ns Med 02/19/17 11:56 Active 1 gm in 250 ml IV NOW Result Diagrams: 02/19/17 14:46 08/12/17 14:46 - REASSESSMENT Reassessment #1 Time Reassessed: 15:50 (PT still doesn't feel good) Status: unchanged - XRAY 1 XRAY Study: Chest (stable) - CT/MRI 1 CT Study: Abdomen (postsurgical changes and constipation) - CONSULTS/PCP/HOSPITALIST Notification #1 *Consult/PCP/Hospitalist*: Dr. Almeida Time Discussed: 15:37 (discussing pt with Dr. Almeida about lab results. Pt will be admitted. ) Consult Disposition: Admit #2 Consult: Dr. Bland Time Discussed: 16:40 (Discussing pt with Dr. Bland) Consult Disposition: Admit Departure - Departure Date of Disposition Decision: 02/19/17 Time of Disposition Decision: 16:42 DIAGNOSIS: Abdominal pain Disposition: ADMITTED INPATIENT 09 Certified Medical Emergency: Emergent Condition: Stable Referrals and Follow-Ups: Jasmina Freeman MD [Primary Care Provider] - - Critical Care Note This patient required my direct & personal management of CC.: No Attestation - Physician/ MENDOZA Attestation Patient care was provided by Advanced Practice Provider:: No The physician spent face to face time with patient:: Yes Advanced Practice Provider documentation review:: Supervising physician onsite and consulted in the evaluation and care of this patient. The physician did have a face to face encounter with the patient. This chart was documented by the indicated scribe, (Praveena Jolley Scribe) and accurately reflects the services I performed and decisions made by me, Zenobia Corado MD, as attested by the provider's signature.
[2017-02-19] MEDS ORDERED: APRESOLINE IV PRN (17:35)
[2017-02-19] MEDS ORDERED: NORCO-7.5 PO PRN (17:35)
[2017-02-19] MEDS ORDERED: VANCOMYCIN IV PER PHARMACY MISC SCH (17:35)
[2017-02-19] MEDS ORDERED: SKELAXIN PO PRN (17:35)
--- NOTE | 2017-02-19 18:05 | HISTORY AND PHYSICAL ---
CIRCULAR DISTRIBUTOR: Dr. Venkat Almeida. CHIEF COMPLAINT: Abdominal pain. HISTORY OF PRESENT ILLNESS: Mrs. Felipe is a 46 -year-old -[place] female well known our service with a history of ESRD on hemodialysis who recently had a peritoneal dialysis catheter placed in preparation for PD. She has been complaining of bilateral lower quadrant pain over the past few days, she saw Dr. Almeida in office who performed analysis of PD fluid as well as a swab of the site where the PD catheter entered the peritoneum. The patient reports that she has been having some exudate around that site. She came back today for continued abdominal pain, she reports some mild nausea but no vomiting, no diarrhea. She denies any chest pain or shortness of breath. She does report low-grade fever and chills. Review of the microbiology reveals that the PD site is growing group D enterococcus faecalis which is sensitive to vancomycin which has been initiated. Blood cultures have been obtained and we are going to admit her for further treatment and evaluation. PAST MEDICAL HISTORY: 1. ESRD on hemodialysis on Tuesday, , Tuesday (she missed today). 2. Hypertension. 3. Type 2 diabetes. 4. History of DVT. 5. History of CVA. 6. GERD. 7. Chronic pain. 8. Anxiety. 9. Hypertension. SURGICAL HISTORY: She has had PD catheter placed in the past, she has also had an AV fistula placed, she has had dialysis catheter placement, she has had gastric bypass, cholecystectomy and hysterectomy. SOCIAL HISTORY: She denies tobacco, alcohol or drug use. HOME MEDICATIONS: Xanax 2 mg b.i.d., Norvasc 10 mg daily, Coreg 25 mg b.i.d., Haldol 1/2 -1 tab p.o. daily, [place] as needed, metaxalone 800 mg b.i.d., sertraline 100 mg a.m. ALLERGIES: To Toradol, Lyrica, Bactrim, Ultram and morphine. REVIEW OF SYSTEMS: Fourteen-point review of systems obtained found to be negative with the exception of the HPI. PHYSICAL EXAMINATION: VITAL SIGNS: Blood pressure is 168/126, heart rate 89, respiratory rate 14, O2 is 100% on room air, temperature is 98.3 degrees. GENERAL: Well-developed, well-nourished female lying in hospital bed in no acute distress. NEUROLOGIC: She is awake, alert and oriented. She follows commands without focal deficits. HEENT: Head atraumatic, normocephalic. Pupils equal, round, reactive to light. Oral mucosa is moist. Trachea is midline. There is no JVD. CHEST: Clear auscultation bilaterally. CV: Regular rate and rhythm. S1-S2 is noted. No murmurs. GI: Soft but slightly distended and tender palpation both lower quadrants, hypoactive bowel sounds noted, PD catheter in place. EXTREMITIES: No edema, pulses 1+ bilaterally. DIAGNOSTIC DATA: CT of the abdomen and pelvis shows postsurgical changes consistent with gastric bypass otherwise no acute findings. Chest x-ray negative. Lab work WBC 4.75, hemoglobin 10.1, hematocrit 31.8, platelet count 195,000, INR 1.03, sodium 139, potassium 4.6, chloride 98, CO2 23, anion gap 18, BUN 34, creatinine 8.5, glucose 104, total bilirubin 0.27, AST 22, ALT 9, alkaline phosphatase 55, CK 39, troponin 0.082, protein 6.6, albumin 3.5, lactic acid 0.5. ASSESSMENT AND PLAN: 1. Peritoneal dialysis catheter associated peritonitis. Swabs taken 2 days ago show enterococcus sensitive to vancomycin. Will continue this with pharmacy to dose and consult Dr. Almeida. Blood cultures have been obtained as well. 2. End-stage renal disease on hemodialysis: Dr. Almeida been consulted for dialysis management and medical management assistance, her hemoglobin and hematocrit, acid-base and volume status are all stable and acceptable. 3. Hypertension: Chronic and stable, continue home medications. 4. Anxiety, depression: Chronic and stable, continue home medications. 5. Deep vein thrombosis prophylaxis will be provided with subcutaneous heparin given her ESRD, further recommendations to follow. Dictated by GARCIA Guaman for Sang Bland MD cc: GARCIA Guaman MD
[2017-02-19] MEDS: XANAX PO SCH (21:30)
[2017-02-19] MEDS: COREG PO SCH (21:30)
[2017-02-19] MEDS: HEPARIN SUBQ SCH (21:30)
[2017-02-19] MEDS: NORCO-10 PO PRN (22:22)
[2017-02-19] MEDS: HALDOL PO SCH (22:24)
[2017-02-20] MEDS: NORCO-10 PO PRN ×3 (04:25→21:17)
[2017-02-20 06:16] LABS: HEMATOCRIT 30.5 % (37.0-47.0); HEMOGLOBIN 9.5 g/dL (12.0-16.0); MCHC 31.1 g/dL (33-37); MPV 9.9 FL (7.4-10.4); RBC 3.28 XMIL (4.2-5.4)
[2017-02-20 06:57] LABS: ALBUMIN 3.6 g/dL (3.5-5.0); CALCIUM 8.7 mg/dL (8.8-10.2); POTASSIUM 3.7 mmol/L (3.5-5.1)
[2017-02-20] MEDS: HEPARIN SUBQ SCH ×2 (08:18→21:17)
[2017-02-20] MEDS: ZOLOFT PO SCH (08:19)
[2017-02-20] MEDS: NEXIUM PO SCH (08:19)
[2017-02-20] MEDS: NORVASC PO SCH (08:19)
[2017-02-20] MEDS: COREG PO SCH ×2 (08:19→21:17)
[2017-02-20] MEDS: XANAX PO SCH ×2 (08:19→21:17)
[2017-02-20] MEDS ORDERED: VANCOMYCIN 1 GM/NS 1 GM/250 ML IVPB IV SCH (08:45)
--- NOTE | 2017-02-20 14:32 | PROGRESS NOTE ---
DATE: 02/20/2017 SUBJECTIVE: Patient was admitted on 02/19/2017, presented with abdominal pain. Email Marketing Specialist is Dr. Almeida. A 46-year-old, well known to this service. History of end-stage renal disease, on hemodialysis. Recently had a peritoneal dialysis catheter placed in preparation for peritoneal dialysis. The patient complained of bilateral lower quadrant pain over the past few days. Saw Dr. Almeida in office. Performed analysis the PD fluid as well as a with the PD catheter into the peritoneum. The patient reports that she has been having exudate around the site. Came back today for continued abdominal pain. She reports some mild nausea and vomiting and diarrhea also. She denies any pain or shortness of breath. Reports low grade fever and chills. Review of microbiology reveals that peritoneal dialysis site is growing group D enterococcus faecalis sensitive to vancomycin and this has been initiated. Blood cultures were obtained. She is going to admit her for treatment. PAST MEDICAL HISTORY: 1. Endstage renal disease, on hemodialysis Tuesday, , and Tuesday. She missed today. 2. Hypertension. 3. Diabetes mellitus type 2. 4. History of DVT. 5. History of CVA. 6. Gastroesophageal reflux disease. 7. Chronic pain. 8. Anxiety. 9. Hypertension. 10. Note she had a peritoneal dialysis catheter placed. OBJECTIVE: Vital Signs: Afebrile, temperature 98.1 degrees, pulse 74, respirations 14, blood pressure 92/58. Respiratory: Lungs are clear in all lung alvarado. Cardiovascular: Regular rate without murmur or S3. Abdomen: Soft. Skin: Warm and dry. Urine output 1200 mL. LABORATORY STUDIES: Reviewed from today. Hematocrit 30, white blood cell count 4000, platelet count 177,000. Chemistries: Sodium 138, potassium 3.7, chloride 100, bicarb 17, BUN 45, creatinine 10.3. Abdominal and pelvic CT done yesterday: Postsurgical changes and constipation. ASSESSMENT AND PLAN: 1. Peritoneal dialysis catheter associated peritonitis. Swabs taken 2 days ago showed enterococcus sensitive vancomycin. Continue present antibiotics. Dr. Almieda following. We will get infectious disease as well. 2. End-stage renal disease, on hemodialysis. Volume status, electrolytes and acid base looks stable. 3. Hypertension. 4. Anxiety and depression. Review of her orders, I do not see any changes. cc: Renny Okeefe MD
[2017-02-20] MEDS: AMPICILLIN 1 GM/NS 1 GM/50 ML IVPB IV SCH (16:20)
--- NOTE | 2017-02-20 17:40 | CONSULTATION ---
DATE OF CONSULTATION: 02/20/2017 CONCLUSION: The patient has an enterococcal peritoneal dialysis catheter site infection, but not peritonitis. RECOMMENDATIONS: I have switched the patient from IV vancomycin to IV ampicillin. The dose of ampicillin has been modified because of the patient's renal failure. DISCUSSION: The patient tells me that approximately 4 days ago, she started having abdominal pain, but no fever or chills. She had a culture taken from around the catheter site and it grew enterococcus. Peritoneal fluid obtained through the peritoneal catheter shows no growth and on Gram stain, no bacteria were seen. Laboratory studies thus far show a CBC with a white count of 4000, hemoglobin 9.5, and platelet count 177,000, creatinine is 10.3, GFR is 5. Liver function studies are normal. Blood cultures are pending. PAST MEDICAL HISTORY/REVIEW OF SYSTEMS: Eyes and ears: She denies difficulty hearing or seeing. Neck: No stiffness. Lungs: No cough or shortness of breath. Cardiac: No chest pain or palpitations. GI: No nausea, vomiting, or diarrhea. The patient did have starting 4 days ago, fever and abdominal pain. Genitourinary: No dysuria or flank pain. Bones, joints, muscles: No swollen joints or myalgias. Endocrine: The patient has diabetes, but not thyroid disease. Neurologic: No seizures. No motor or sensory loss. Integument: No rash. HOT DIP GALVANIZER history: She is a 2, para 2, AB 0. She has had a hysterectomy. PREVIOUS HOSPITALIZATIONS AND OPERATIONS: She has had labor and deliveries, a hysterectomy, a parathyroidectomy, surgery on her right ankle and also on her right tibia. She had bernadette inserted in it because of a fracture. She has had placement of a peritoneal dialysis catheter. She has had placement of a left-sided vas catheter for hemodialysis. She has also had gastric bypass and cholecystectomy. MEDICAL DISEASES: Positive for end-stage renal disease, hypertension, diabetes , deep venous thrombosis, stroke, gastroesophageal reflux disease, chronic pain, anxiety, hypertension and parathyroid disease requiring parathyroidectomy. INFECTIOUS DISEASE: Positive for pneumonia and UTI. FAMILY HISTORY: Positive for diabetes mellitus, hypertension, and myocardial infarction. SOCIAL HISTORY: [place] She is . She does not smoke cigarettes, drink alcoholic beverages or abuse drugs. ALLERGIES: She has allergies to Toradol, Lyrica, Bactrim, Ultram and morphine. HOME MEDICATIONS: Include sertraline, metaxalone, hydrocodone, Haldol, Coreg, amlodipine and Xanax. PHYSICAL EXAMINATION: Vital Signs: Temperature is 98.1 degrees, pulse 74, respirations 14, blood pressure 92/58. Patient weighs 172 pounds. Generally, this is a healthy- appearing, but slightly obese middle-aged female. She is in no acute distress. Head, eyes, ears, nose , and throat: She can hear my spoken words and see near objects. No drainage noted from the nose or ears. Neck: No meningismus. Thorax: Patient has a left-sided Vas-Cath in place for dialysis. The site is not swollen or purulent. Lungs: Clear to auscultation. Cardiovascular: Regular heart rate. Abdomen: Soft and nontender. There is a peritoneal dialysis catheter in place. There is some long brown crusting around the catheter. The abdomen was soft and not tender. Neurologic: Patient is alert. She can move her extremities. There is no tremor. Her sensation was intact to touch. Her memory as regarding her medical history was intact. Thank you for the consult. cc: Toño Melissa MD [facility]
[2017-02-20] MEDS: HALDOL PO SCH (21:17)
[2017-02-21] MEDS: AMPICILLIN 1 GM/NS 1 GM/50 ML IVPB IV SCH ×2 (06:20→17:15)
[2017-02-21] MEDS: NORCO-10 PO PRN ×3 (06:21→21:17)
[2017-02-21 06:48] LABS: HEMATOCRIT 31.4 % (37.0-47.0); MCH 29.2 PG (27-31); MCHC 31.8 g/dL (33-37); MCV 91.5 FL (81-99); MPV 11.4 FL (7.4-10.4); RBC 3.43 XMIL (4.2-5.4)
--- NOTE | 2017-02-21 07:40 | PROGRESS NOTE ---
DATE: 02/21/2017 HISTORY OF PRESENT ILLNESS: The patient has an enterococcal infection of the peritoneal dialysis catheter at the entrance site but there is no intra-abdominal infection with the same organism. This is manifested by having a negative culture from the peritoneal dialysate drawn from the abdomen and a relatively low white count. She does not have peritonitis due to the same organism. She does not have peritonitis at all for that matter. The patient has had a parathyroidectomy. MEDICATIONS: The patient is on IV ampicillin. The dose is reduced because of the patient's end- stage renal disease. PHYSICAL EXAMINATION: Vital Signs: Temperature is 97.8 degrees, pulse 96, respirations 18, blood pressure 137/83. General: This is an obese, middle-aged female who is in no acute distress. Lungs: Clear to auscultation. Cardiovascular: Regular heart rate. Abdomen: Soft and nontender. A peritoneal dialysis catheter is in place. There is a dressing around it. The catheter is intact. The area was not swollen or tender. The patient's chest tunneled dialysis catheter site is not swollen or tender. HEENT: Thorax- the patient has a vas-catheter in place. That site is not swollen or tender. LAB AND X-RAY: There is no new x-ray. The CBC for today shows a white count of 6560, hemoglobin 10, platelet count 108,000. MEDICATIONS: Patient currently is receiving ampicillin IV. ASSESSMENT AND PLAN: The patient has an enterococcal infection around the peritoneal dialysis catheter site. It does not look like it is she has peritonitis; therefore, we will continue ampicillin when she leaves the hospital. I will switch her to amoxicillin and follow her up in the office. COMORBIDITIES: Include end-stage renal disease for which the patient is on hemodialysis. She also has diabetes mellitus, gastroesophageal reflux disease, deep venous thrombosis, and parathyroidectomy. cc: Toño Melissa MD
[2017-02-21] MEDS ORDERED: HEPARIN IV PRN (07:58)
[2017-02-21] MEDS ORDERED: TIGHT: 0.2 ML/HR MISC PRN (07:58)
[2017-02-21] MEDS ORDERED: NS 2,000 ML MISC PRN (07:58)
[2017-02-21] MEDS: COREG PO SCH ×2 (08:27→21:17)
[2017-02-21] MEDS: ZOLOFT PO SCH (08:27)
[2017-02-21] MEDS: NEXIUM PO SCH (08:27)
[2017-02-21] MEDS: NORVASC PO SCH (08:27)
[2017-02-21] MEDS: HEPARIN SUBQ SCH ×2 (08:28→21:17)
[2017-02-21] MEDS: XANAX PO SCH ×2 (08:37→21:17)
[2017-02-21 09:38] LABS: ALBUMIN 3.3 g/dL (3.5-5.0); CALCIUM 8.1 mg/dL (8.8-10.2); POTASSIUM 4.6 mmol/L (3.5-5.1)
--- NOTE | 2017-02-21 10:11 | PROGRESS NOTE ---
DATE: 02/21/2017 SUBJECTIVE: The patient was admitted on 02/19/2017. A 46-year-old who came in with abdominal pain, well known to our service, history of end-stage renal disease, on hemodialysis. Recently had peritoneal dialysis catheter placed in position for peritoneal dialysis. She had been complaining of bilateral lower quadrant pain over the past few days, saw Dr. Almeida in the office, who performed analysis of PD fluid, as well as swab where the PD catheter entered the peritoneum. The patient reports she has been having some exudate around that site. She came back for continued abdominal pain, and reports some mild nausea, vomiting, and diarrhea. Denied any chest pain or shortness of breath. Review of microbiology revealed that the PD site was growing group D Enterococcus faecalis, which was sensitive to vancomycin. ASSESSMENT AND PLAN: 1. She had Enterococcal peritoneal dialysis catheter site infection, but does not appear to be peritonitis. She is complaining of pain. She wants something stronger than what we are giving her. She has remained afebrile. We will continue intravenous ampicillin, and actually she could go home with oral ampicillin. 2. End-stage renal disease. Continue hemodialysis. Her volume, electrolytes, and acid base status look good. 3. History of gastroesophageal reflux. Looking over her orders right now of her pain medicine, she is getting hydrocodone 1 every 6 hours. I guess I will go up to every 4 hours as needed at this point. She is on Zoloft 100 mg a day, Skelaxin 800 mg twice daily, Coreg 25 mg twice daily, is getting her ampicillin 1 gram every 12 hours, Norvasc 10 mg a day, and her Xanax 2 mg twice daily. cc: Renny Okeefe MD
[2017-02-21] MEDS ORDERED: NS 2,000 ML ONE (11:15)
[2017-02-21] MEDS ORDERED: HEPARIN ONE (11:15)
[2017-02-21] MEDS ORDERED: NORCO-10 ONE (13:57)
--- NOTE | 2017-02-21 15:14 | CONSULTATION ---
DATE OF CONSULTATION: 02/21/2017 REASON FOR ADMISSION: Abdominal pain. REASON FOR CONSULTATION: Assist with management, ESRD. CONSULTING PHYSICIAN: Dr. Okeefe. HISTORY OF PRESENT ILLNESS: This is a 46-year-old female known to our service for end-stage renal disease on hemodialysis. She has recently wanted transitioned over to peritoneal dialysis. In the context she had a peritoneal dialysis catheter placed. That was done on February 09. She has continued her hemodialysis while the PD catheter has grafted in. She came into the office secondary to the bilateral lower quadrant pain for a few days and had analysis of the PD site and fluid completed in the office. She continued for abdominal pain and nausea and vomiting. The PD fluid itself has had no growth on the final. Her initial culture showed gram positive cocci, Enterococcus faecalis sensitive to vancomycin. That had already been initiated. Secondary to her condition, she was admitted to the hospital for further workup and treatment. She has continued on ampicillin while she has been in the hospital. Today when I see her she is quite drowsy and has apparently received some pain medication. Information is obtained from the chart. PAST MEDICAL HISTORY: 1. End-stage renal disease, Tuesday, , Tuesday. She missed her Tuesday treatment. 2. Hypertension. 3. Diabetes type 2. 4. History of DVT. 5. History of CVA. 6. GERD. 7. Chronic pain. 8. Anxiety. SURGICAL HISTORY: Recent PD catheter placement. She has had a tunnel dialysis catheter and she has an AV fistula. She has also had gastric bypass, cholecystectomy, and hysterectomy. ALLERGIES: Toradol, Lyrica, Bactrim, Ultram, and morphine. HOME MEDICATIONS: Listed as Xanax, Norvasc, Coreg, Haldol, Kelly, metolazone, , metaxalone, and Sertraline. SOCIAL HISTORY: No ETOH, tobacco, or illicit drug use. FAMILY HISTORY: Noncontributory. REVIEW OF SYSTEMS: Positive for abdominal pain. PHYSICAL EXAMINATION: Vital Signs: Temperature 98.4 degrees, pulse 81, respiratory rate 16, blood pressure 154/98. Intake 1.2 L. Output not measured. General: This is a middle-aged female, resting in bed. She is somewhat lethargic. She does rouse and talk but goes back to sleep rather rapidly. HEENT: Normocephalic, atraumatic. Oral mucosa moist. Conjunctivae pink. Neck: Supple. No JVD. Cardiovascular: Regular rate and rhythm. There is no murmur or gallop appreciated. Pulmonary: She has equal excursion. She is clear bilaterally. She has some decreased breath sounds noted. No increased work of breathing. Abdomen: Slightly distended. Tender to palpation. She has a peritoneal catheter noted to the left lower quadrant. There is no drainage noted to the dressing. Positive bowel sounds. : Not inspected. Minimal void with hemodialysis assist. Extremities: She has no pretibial edema. No clubbing or cyanosis. Skin: Dry, warm. Neurologic: Drowsy. Grossly nonfocal otherwise. LAB DATA: WBC of 6.5, hemoglobin 10.0, hematocrit 31.4, platelet count 108, 000. Sodium 138, potassium 3.7, CO2 17, BUN 45, creatinine 10.3, calcium 8.7, albumin 3.6. ASSESSMENT AND PLAN: 1. End-stage renal disease management. The patient did not have dialysis on Tuesday. Will go ahead and dialyze her today. A 3 K bath/UF to dry weight, 4 hour treatment. 2. Electrolytes, acid-base balance. Will address on dialysis. 3. Anemia, stable. Will hold EPO at this time. 4. Enterococcus faecalis from exit site. On ampicillin. 5. Blood pressure acceptable. We will dialyze today. Her blood pressures have ranged from 108/80 to 154/98. Dictated by GARCIA Mccray for Venkat Almeida MD Patient seen, data reviewed, discussed with Isauro Trevino on 02/21/17. I agree with the above assessment and plan of care. cc: MD BK Wright
[2017-02-21 18:24] LABS: DIFF NEEDED? YES; MONOS 12 %; POLYS 88 %; WBC BF 258 /cumm
[2017-02-21] MEDS ORDERED: VANCOMYCIN 1 GM/NS 1 GM/250 ML IVPB IV ONE (18:34)
[2017-02-21] MEDS ORDERED: TAZIDIME 2 GM in NS 100 ML IV ONE (18:35)
[2017-02-21] MEDS ORDERED: VANCOMYCIN 1 GM/NS 1 GM/250 ML IVPB IV SCH (18:45)
[2017-02-21] MEDS: HALDOL PO SCH (21:18)
[2017-02-22] MEDS: AMPICILLIN 1 GM/NS 1 GM/50 ML IVPB IV SCH (05:45)
[2017-02-22] MEDS ORDERED: NS 2,000 ML ONE (07:34)
[2017-02-22] MEDS ORDERED: HEPARIN ONE (07:34)
[2017-02-22 08:01] LABS: HEMATOCRIT 28.1 % (37.0-47.0); HEMOGLOBIN 8.7 g/dL (12.0-16.0); MCH 28.6 PG (27-31); MCV 92.4 FL (81-99); MPV 9.5 FL (7.4-10.4); RBC 3.04 XMIL (4.2-5.4)
[2017-02-22 08:14] LABS: ALBUMIN 3.1 g/dL (3.5-5.0); CALCIUM 7.7 mg/dL (8.8-10.2); POTASSIUM 3.7 mmol/L (3.5-5.1)
[2017-02-22] MEDS: COREG PO SCH ×2 (08:41→21:16)
[2017-02-22] MEDS: NEXIUM PO SCH (08:41)
[2017-02-22] MEDS: ZOLOFT PO SCH (08:41)
[2017-02-22] MEDS: XANAX PO SCH ×2 (08:41→21:17)
[2017-02-22] MEDS: HEPARIN SUBQ SCH ×2 (08:41→21:16)
[2017-02-22] MEDS: NORVASC PO SCH (08:41)
[2017-02-22] MEDS: PHENERGAN IV PRN ×2 (12:40→17:17)
--- NOTE | 2017-02-22 12:58 | PROGRESS NOTE ---
DATE: 02/22/2017 SUBJECTIVE: She does feel better. Abdominal pain is less. She does complain of some nausea still. OBJECTIVE: General: On exam awake, sitting up. Vital signs: Afebrile. Temperature 98 degrees, pulse 94, respirations 18, blood pressure 92/62. Lungs: Clear in all lung alvarado. Cardiovascular: Regular rhythm and rate without murmur or S3. Abdomen: Soft. Skin: Warm and dry. LABORATORY DATA: Urine output was almost 5 L. That was with dialysis. Blood work white count 3840, hematocrit 28, platelet count 164,000. Chemistry: Sodium 141, potassium 3.7, chloride 99, BUN 35, creatinine 7.5, phosphorus 6.3, and calcium 7.7. ASSESSMENT AND PLAN: 1. End-stage renal disease. The patient did not have dialysis Tuesday, so she has received hemodialysis. Dr. Almeida is, I think, thinking about trying the peritoneal dialysis. She had a recent peritoneal port put in. Appears to have a little infection that is around the port, but no sign of peritonitis. 2. Electrolytes acid-base anemia, stable. 3. Enterococcus faecalis from the exit site on ampicillin. 4. Abdominal pain. Continue present measures. 5. We will continue IV ampicillin. Review of her orders, I do not see any change. At this point she is on IV ampicillin 1 g q.12 hours. cc: Renny Okeefe MD
--- NOTE | 2017-02-22 13:25 | PROGRESS NOTE ---
DATE: 02/22/2017 SUBJECTIVE: Abdominal discomfort is about the same. She is having bowel movements. She is eating, though not well. No vomiting. OBJECTIVE: Vital signs: Blood pressure 134/81, heart rate 98, respiration 18, afebrile. General: She is in no acute distress. Skin: Warm and dry. HEENT: Conjunctivae are pink. Neck: Neck veins are not appreciated. Heart: Regular without gallops or murmurs. Lungs: Have equal breath sounds. No crackles or wheezes. Abdomen: Soft and mildly tender diffusely. There is no tenderness along the tract or at the exit site. Bowel sounds are present. Extremities: Have no edema, clubbing, or cyanosis. LABORATORY DATA: Sodium 141, potassium 3.7, chloride 99, bicarbonate 23, BUN 35, creatinine 7.5. Hemoglobin 8.7. IMPRESSIONS: 1. Abdominal pain. I repeated her PD fluid cell count yesterday and it was 258. On this basis, I broaden her coverage to vancomycin and ceftazidime and will continue that for a normal course of treatment. We will also do short cycle abdominal rinses today to see if that helps her symptoms. 2. Electrolytes are acceptable. 3. Acid-base. In target. 4. Anemia. Hemoglobin is below target. Will dose with erythropoietin. cc: Venkat Almeida MD
--- NOTE | 2017-02-22 16:32 | PROGRESS NOTE ---
DATE: 02/22/2017 PRESENT ILLNESS: The patient initially had an enterococcal infection of the peritoneal dialysis catheter site. I agree with Dr. Almeida that the patient has developed peritonitis as demonstrated by the fact that the patient had in her dialysate 258 white cells of which 88% were polymorphonuclear organisms. MEDICATIONS: The patient has been switched to vancomycin and ceftazidime given after each dialysis. PHYSICAL EXAMINATION: Vital Signs: Temperature is 98, pulse 94, respirations 18, blood pressure 92/62. General: This is a slightly obese, but otherwise appears to be a healthy, middle-aged female. She is in no acute distress. Lungs: Clear to auscultation. Cardiovascular: Regular heart rate. Abdomen: Soft. It is tender on palpation. There is a minimal serous drainage coming up from around the G-tube site. LAB AND X-RAY: There is no new radiographic study today. The patient's CBC shows a white count of 3840, hemoglobin 8.7, and platelet count 164,000. Creatinine 7.5, GFR is 7. Blood cultures are sterile. Peritoneal fluid was removed. It had a white cell count of 258 of which 88% or more were polymorphonuclear white cells. ASSESSMENT AND PLAN: Patient does have peritonitis now. The plan is to stop IV ampicillin and start the patient on vancomycin and ceftazidime, each to be given after each dialysis. COMORBIDITIES: She has end-stage renal disease. She is on hemodialysis. She has a dialysis peritoneal catheter in place. The patient also has diabetes mellitus, gastroesophageal reflux disease, deep venous thrombosis and parathyroidectomy. cc: Toño Melissa MD MTDD
[2017-02-22] MEDS: NORCO-10 PO PRN ×2 (17:18→21:16)
[2017-02-22] MEDS: HALDOL PO SCH (21:15)
[2017-02-23] MEDS: NORCO-10 PO PRN ×4 (04:30→21:29)
[2017-02-23] MEDS: ZOLOFT PO SCH (08:52)
[2017-02-23] MEDS: EPOGEN SUBQ SCH (08:52)
[2017-02-23] MEDS: NORVASC PO SCH (08:52)
[2017-02-23] MEDS: NEXIUM PO SCH (08:52)
[2017-02-23] MEDS: COREG PO SCH ×2 (08:52→21:30)
[2017-02-23] MEDS: HEPARIN SUBQ SCH ×2 (08:52→21:32)
[2017-02-23] MEDS: PHENERGAN IV PRN ×3 (09:02→21:42)
[2017-02-23] MEDS: XANAX PO SCH ×2 (09:02→21:30)
[2017-02-23] MEDS: SODIUM CHLORIDE 0.9% INJ PRN ×3 (09:03→21:42)
[2017-02-23 16:15] LABS: DIFF NEEDED? YES; MONOS 60 %; POLYS 40 %; WBC BF 50 /cumm
--- NOTE | 2017-02-23 16:15 | PROGRESS NOTE ---
DATE: 02/23/2017 SUBJECTIVE: The patient states that she continues to have nausea. OBJECTIVE: Vital Signs: Temperature 98.5 degrees, pulse 84, respiratory rate 14, blood pressure 136/84. Intake 840 mL, output 450 mL. PHYSICAL EXAMINATION: General: This is a middle-aged female, resting in bed. She is awake, alert, in mild distress secondary to nausea. HEENT: Normocephalic, atraumatic. Oral mucosa moist. Neck: Supple. No JVD. Cardiovascular: Regular rate and rhythm. No murmur or gallop. Pulmonary: Equal excursion. Clear bilaterally. Abdomen: Soft. Continues with diffuse tenderness. PD catheter noted. No drainage. Integumentary: Skin is warm and dry. No rash or lesion. Extremities: No clubbing, cyanosis or edema. : Not inspected. She is voiding. LAB DATA: Have no labs this morning. ASSESSMENT AND PLAN: 1. Abdominal pain. We did short cycle abdominal rinses yesterday for symptomatic treatment. We will plan to put a L fluid dwell in today, let that sit for a few hours and then re-sample it for WBCs. 2. Electrolytes, acid-base balance anemia. I do not have any labs today. These have been stable. 3. Hypertension, controlled. Dictated by GARCIA Mccray for Venkat Almeida MD Patient seen, data reviewed, discussed with Isauro Trevino on 02/23/17. I agree with the above assessment and plan of care. cc: Venkat Almeida MD [facility]
--- NOTE | 2017-02-23 16:16 | PROGRESS NOTE ---
DATE: 02/23/2017 SUBJECTIVE: The patient states she is still having abdominal pain. She did have the peritoneal exchange started yesterday and tolerated that pretty well. SUBJECTIVE: Vital signs: Temperature is 98.6 degrees, pulse 89, respirations 20, blood pressure 130/86. Lungs: Clear in all lung alvarado. Cardiovascular: Regular rhythm and rate without murmur or S3. Abdomen: Soft. Skin: Warm and dry. ASSESSMENT AND PLAN: 1. She is complaining of some nausea. She would like something stronger for pain. I explained that I really do not want to go up on her pain medication. She has enterococcal infection peritoneal dialysis catheter site, and this seems to be improving. Dr. Almeida and Dr. Melissa believe the patient had dialysate of 258 white blood cells, and 88% were polymorphonuclear cells. [place] like he had a little infection in the peritoneal site so continue vancomycin and ceftazidime. Discontinue the peritoneal dialysis. She started cyclic abdominal rinses. 2. Electrolytes and acid base appear to be on target. 3. Anemia. Stable. 4. Nonspecific abdominal pain. We will continue present regimen. I explained to her the down side of opiate analgesia. She is right now on 10 mg q.4 hours p.r.n. cc: Renny Okeefe MD
--- NOTE | 2017-02-23 17:02 | PROGRESS NOTE ---
DATE: 02/23/2017 PRESENT ILLNESS: The patient has peritonitis. MEDICATIONS: The patient is getting ceftazidime 2 g IV every 48 hours being given intravenously. She it is getting vancomycin being given in a dose of 1 g after each dialysis. PHYSICAL EXAMINATION: Vital Signs: Temperature is 98.6 degrees, pulse 89, respirations 20, blood pressure 138/86. General: This is an obese, but otherwise healthy-appearing middle-aged female. She is in no acute distress. Cardiovascular: The heart rate is regular. Abdomen: Soft and less tender today. The dialysis tube is present. The tube site is not draining. Thorax: The patient has a tunneled dialysis catheter present on the left side. LAB AND X-RAY: The patient had fluid withdrawn from the abdomen. The white blood cell count was 50 with 80% polymorphonuclear cells. The blood cultures are sterile. ASSESSMENT AND PLAN: The plan is to continue with the patient's antibiotics for her peritonitis at this time. COMORBIDITIES: End-stage renal disease, hemodialysis, peritoneal dialysis catheter in place, diabetes mellitus, gastroesophageal reflux disease, deep venous thrombosis, and parathyroidectomy. cc: Toño Melissa MD
[2017-02-23] MEDS: TAZIDIME 2 GM/NS 2 GM/100 ML IVPB IV SCH (18:06)
[2017-02-23] MEDS: HALDOL PO SCH (21:30)
[2017-02-24] MEDS ORDERED: TIGHT: 0.2 ML/HR MISC PRN (06:51)
[2017-02-24] MEDS ORDERED: NS 2,000 ML MISC PRN (06:51)
[2017-02-24] MEDS ORDERED: HEPARIN IV PRN (06:51)
[2017-02-24] MEDS: NORCO-10 PO PRN ×4 (07:45→22:26)
[2017-02-24] MEDS: PHENERGAN IV PRN ×4 (07:46→22:25)
[2017-02-24] MEDS: SODIUM CHLORIDE 0.9% INJ PRN ×3 (07:47→17:50)
[2017-02-24] MEDS: ZOLOFT PO SCH (07:59)
[2017-02-24] MEDS: HEPARIN SUBQ SCH ×2 (07:59→22:26)
[2017-02-24] MEDS: NORVASC PO SCH (07:59)
[2017-02-24] MEDS: COREG PO SCH ×2 (07:59→22:26)
[2017-02-24] MEDS: XANAX PO SCH ×2 (07:59→22:26)
[2017-02-24] MEDS: NEXIUM PO SCH (08:00)
[2017-02-24] MEDS ORDERED: NS 2,000 ML ONE (08:24)
[2017-02-24] MEDS ORDERED: HEPARIN ONE (08:24)
--- NOTE | 2017-02-24 15:59 | PROGRESS NOTE ---
DATE: 02/24/2017 The patient underwent dialysis earlier today. She stated that she began having nausea and vomiting toward the end of dialysis. She has just been treated with p.r.n. and begun having some relief. Otherwise no issues during today's treatment. OBJECTIVE: Vital signs: Temperature 98.9 degrees, pulse 95, respiratory rate 18, blood pressure 127/78. Intake 780 mL, output not measured. General: A middle-aged female, resting in bed. Awake, alert, again mild distress secondary to nausea. HEENT: Normocephalic, atraumatic. Oral mucosa moist. CRYSTAL, conjunctivae pink. Neck: Supple. No JVD. Cardiovascular : Regular rate and rhythm without murmur or gallop. Pulmonary: Equal excursion. Clear bilaterally. Abdomen: Is soft with tenderness. PD catheter noted. : Not inspected. Continues to void. Extremities: No clubbing, cyanosis or edema. Integumentary: Skin is warm and dry. LAB DATA: None. ASSESSMENT AND PLAN: 1. End-stage renal disease management. Went ahead and dialyzed her hemodialysis today. Continue to move forward with the plan to initiate PD as soon as possible. We will have PD nurse from office call and set up training start. 2. Abdominal pain. We did a sample yesterday of PD fluid. Her numbers were much improved. 3. Electrolytes, acid-base balance. No labs today. 4. Hypertension controlled. 5. Nausea, vomiting secondary to above. Continue with p.r.n. Dictated by GARCIA Mccray for Venkat Almeida MD Patient seen, data reviewed, discussed with Isauro Trevino on 02/24/17. I agree with the above assessment and plan of care. cc: Venkat Almeida MD [facility]
[2017-02-24] MEDS: VANCOMYCIN 1 GM/NS 1 GM/250 ML IVPB IV ONE ×2 (16:22→17:24)
--- NOTE | 2017-02-24 16:42 | PROGRESS NOTE ---
DATE: 02/24/2017 PRESENT ILLNESS: The patient is being treated currently for peritonitis. MEDICATIONS: She is getting ceftazidime intravenously in a dose of 2 g every 48 hours and 1 g of vancomycin after each dialysis IV. PHYSICAL EXAMINATION: Vital Signs: Temperature is 98.7 degrees, pulse 103, respirations 18, blood pressure 119/72. General: This is an obese, but otherwise healthy-appearing, middle-aged female. She is in no acute distress. Lungs: Clear to auscultation. Cardiovascular: Regular heart rate. Abdomen: Soft and nontender. : There is a dialysis catheter in place and the site is not swollen or tender. Thorax: The patient has a left-sided tunneled dialysis catheter in place. That site is not swollen or tender either. LABORATORY AND X-RAY: There is no new laboratory or x-ray. ASSESSMENT AND PLAN: 1. I plan to continue the patient's antibiotics for her peritonitis at this time. The patient has been treated with vancomycin and ceftazidime for 2 days now. 2. The patient's comorbidities include end-stage renal disease, hemodialysis, peritoneal dialysis catheter in place, diabetes mellitus and gastroesophageal reflux disease. cc: Toño Melissa MD
--- NOTE | 2017-02-24 17:25 | PROGRESS NOTE ---
DATE: 02/24/2017 PRESENT ILLNESS: The patient has peritonitis. MEDICATIONS: Patient is receiving ceftazidime 2 g IV every 48 hours and vancomycin 1 g IV after each dialysis. PHYSICAL EXAMINATION: Vital Signs: Temperature is 98.7 degrees, pulse 103, respirations 18, blood pressure 119/72. General: The patient is obese but otherwise healthy-appearing. She is complaining today of some abdominal pain. Lungs: Clear to auscultation. Cardiovascular: Regular heart rate. Abdomen: Soft and nontender. The patient's dialysis catheter site is not purulent or tender. Thorax: The patient has a tunneled dialysis catheter in place. The site is not swollen or tender or draining. LAB AND X-RAY: There is no new lab or x-ray for today. ASSESSMENT AND PLAN: Patient has peritonitis. The plan is to continue with her antimicrobial therapy. The patient's comorbidities are that the patient is middle-aged and she has end-stage renal disease, hemodialysis, peritoneal dialysis, catheter in place, diabetes mellitus, and gastroesophageal reflux disease. cc: Toño Melissa MD
--- NOTE | 2017-02-24 18:05 | PROGRESS NOTE ---
DATE: 02/24/2017 SUBJECTIVE: She said she had a better day today. They did hemodialysis. May try peritoneal tomorrow. Dr. is talking about letting her go home tomorrow. PHYSICAL EXAMINATION: Vital signs: Temp 98.7 degrees, pulse 100, respirations 18, blood pressure 119/72. Lungs: Clear in all lung alvarado. Cardiovascular: Regular rhythm and rate, without murmur or S3. Abdomen: Soft. Skin: Warm and dry. Genitourinary: Urine output 4000 mL. LABORATORIES: Reviewed from February 22. ASSESSMENT AND PLAN: 1. The patient treated for peritonitis, getting ceftazidime IV, for a dose of 2 g every 48 hours, and 1 g of vancomycin after dialysis. She is clinically better, states the abdominal pain is better. 2. History of gastroesophageal reflux. 3. Diabetes mellitus type 2. Sugars under good control. 4. Abdominal pain. Looking over orders, no change. Hopefully, can go home tomorrow. cc: Renny Okeefe MD
[2017-02-24] MEDS: HALDOL PO SCH (22:26)
[2017-02-25] MEDS: PHENERGAN IV PRN ×4 (03:56→23:01)
[2017-02-25] MEDS: NORCO-10 PO PRN ×4 (03:57→17:33)
[2017-02-25 07:04] LABS: HEMATOCRIT 27.3 % (37.0-47.0); HEMOGLOBIN 8.4 g/dL (12.0-16.0); MCH 29.4 PG (27-31); MCHC 30.8 g/dL (33-37); MCV 95.5 FL (81-99); MPV 9.5 FL (7.4-10.4); RBC 2.86 XMIL (4.2-5.4)
[2017-02-25 07:25] LABS: ALBUMIN 3.4 g/dL (3.5-5.0); CALCIUM 7.4 mg/dL (8.8-10.2); POTASSIUM 3.8 mmol/L (3.5-5.1)
[2017-02-25] MEDS: NEXIUM PO SCH (08:13)
[2017-02-25] MEDS: ZOLOFT PO SCH (08:13)
[2017-02-25] MEDS: SODIUM CHLORIDE 0.9% INJ PRN ×3 (08:13→23:01)
[2017-02-25] MEDS: XANAX PO SCH ×2 (08:14→21:57)
[2017-02-25] MEDS: HEPARIN SUBQ SCH ×2 (08:14→21:56)
[2017-02-25] MEDS: NORVASC PO SCH (08:14)
[2017-02-25] MEDS: COREG PO SCH ×2 (08:23→21:56)
[2017-02-25] MEDS ORDERED: ZOFRAN IV ONE (11:30)
--- NOTE | 2017-02-25 11:44 | Diag Imaging Result Doc PS360 ---
EXAM: ABDOMEN FLAT/UPRIGHT HISTORY: Abd pain, n/v, peritonitis TECHNIQUE: Three views COMPARISON: 08/28/2016 FINDINGS: No free air beneath the diaphragm. There are multiple surgical clips in the upper abdomen. No organomegaly. An inferior vena caval filter overlies the right side of the L4 vertebra. The bowel loops are not dilated. A catheter is coiled low in the pelvis. There are several phleboliths. Stool is found throughout the colon. IMPRESSION: Constipation. Electronically signed by Matthew Barnett 02/25/2017 11:41 AM
--- NOTE | 2017-02-25 11:50 | PROGRESS NOTE ---
DATE: 02/25/2017 SUBJECTIVE: She states she has had some nausea today and vomiting. Her belly pain is somewhat better, however. Continues to have bowel movements. No chills or fevers. OBJECTIVE: Vital Signs: Blood pressure 124/75, heart rate 92, respirations 17, afebrile. General: She is a middle-aged woman in no acute distress. Skin: Warm and dry. Eyes: Conjunctivae are pink. Pupils are equal. Neck: Neck veins are not distended. Tongue is moist. Heart: Regular without gallops or murmurs. Lungs: Have equal breath sounds. No crackles or wheezes. Abdomen: Soft, mildly tender diffusely, but clearly less tender than she has been. Bowel sounds are present. Extremities: Have no edema, clubbing, or cyanosis. LABORATORY DATA: Sodium 142, potassium 3.8, chloride 101, bicarbonate 26, BUN 32, creatinine 5.8, hemoglobin 8.4. IMPRESSION: 1. Peritonitis. Continue antibiotics. We will sample her fluid again today. 2. Nausea, vomiting. We will check a flat and upright, although she is still having bowel movements. I will also give a dose of Zofran and see if this helps control her symptoms more effectively. 3. Falling hemoglobin. We will check stool Hemoccult. cc: Venkat Almeida MD
--- NOTE | 2017-02-25 14:35 | PROGRESS NOTE ---
DATE: 02/25/2017 SUBJECTIVE: She is doing better. Still having nausea just shortly after she eats. I think we will try some Reglan to see if that will help. PHYSICAL EXAMINATION: Vital Signs: Temperature 98.3 degrees, pulse 93, respirations 18, blood pressure 131/71. Lungs: Clear in all lung alvarado. Cardiovascular: Regular rhythm and rate without murmur or S3. Abdomen: Soft. Skin: Is warm and dry. Genitourinary: Good urine output. LAB: White count 4220, hematocrit is 27, platelet count 149,000. Chemistry: Sodium 142, potassium 3.8, chloride 101, BUN 32, creatinine 5.8. ASSESSMENT AND PLAN: 1. Treating for peritonitis. Continue present antibiotics. Sample her fluid again today. 2. Nausea and vomiting. I am going to try doses of Zofran, and I will maybe try some Reglan 5 mg before meals and at bedtime. 3. Falling hemoglobin. Continue to check stools for blood. Continue to follow. Abdominal x-ray done today showed some constipation. 4. Diabetes mellitus type 2. Sugars are under good control. 5. Gastroesophageal reflux. cc: Renny Okeefe MD
[2017-02-25] MEDS: EPOGEN SUBQ SCH (15:24)
[2017-02-25] MEDS: REGLAN PO SCH ×2 (15:24→21:57)
[2017-02-25] MEDS ORDERED: ZOFRAN IV PRN (16:00)
[2017-02-25 17:33] LABS: DIFF NEEDED? YES; MONOS 74 %; POLYS 26 %; WBC BF 37 /cumm
--- NOTE | 2017-02-25 18:11 | PROGRESS NOTE ---
DATE: 02/25/2017 PRESENT ILLNESS: The patient is being treated for peritonitis. A peritoneal catheter is in place. MEDICATIONS: She is on intravenous ceftazidime and vancomycin. This is the is the 3rd day of treatment with both of these antibiotics. PHYSICAL EXAMINATION: Vital Signs: Temperature is 98.1 degrees, pulse 96, respirations 28, blood pressure 134/86. General: This is a fairly obese but otherwise healthy-appearing, middle-aged female. She is in no acute distress. Lungs: Clear to auscultation. Cardiovascular: Regular heart rate. Abdomen: Soft and nontender. A peritoneal dialysis catheter is in place. The site does not have any drainage. Thorax: The patient has a left-sided tunneled dialysis catheter in place. The site is not swollen or tender. LAB AND X-RAY: The patient's CBC today the white count was 4220, hemoglobin 8.4 and platelet count 149,000. ASSESSMENT AND PLAN: The patient is being treated for peritonitis. I plan to continue the patient's 2 antibiotics, namely vancomycin and ceftazidime. This is day 3 of treatment. COMORBIDITIES: Include end-stage renal disease, hemodialysis, peritoneal dialysis with catheter in place, diabetes mellitus and gastroesophageal reflux disease. cc: Toño Melissa MD
[2017-02-25] MEDS: TAZIDIME 2 GM/NS 2 GM/100 ML IVPB IV SCH (18:58)
[2017-02-25] MEDS: HALDOL PO SCH (21:57)
[2017-02-26] MEDS: SODIUM CHLORIDE 0.9% INJ PRN ×2 (02:38→07:05)
[2017-02-26] MEDS: PHENERGAN IV PRN ×3 (02:38→12:38)
[2017-02-26] MEDS: NORCO-10 PO PRN ×3 (02:39→15:09)
[2017-02-26] MEDS: REGLAN PO SCH ×3 (07:04→15:10)
[2017-02-26 07:25] LABS: HEMATOCRIT 27.9 % (37.0-47.0); HEMOGLOBIN 8.6 g/dL (12.0-16.0); MCH 28.6 PG (27-31); MCHC 30.8 g/dL (33-37); MCV 92.7 FL (81-99); MPV 9.1 FL (7.4-10.4); RBC 3.01 XMIL (4.2-5.4)
[2017-02-26 07:37] LABS: ALBUMIN 3.6 g/dL (3.5-5.0); CALCIUM 7.3 mg/dL (8.8-10.2); POTASSIUM 4.4 mmol/L (3.5-5.1)
[2017-02-26] MEDS ORDERED: HEPARIN IV PRN (09:28)
[2017-02-26] MEDS ORDERED: NS 2,000 ML MISC PRN (09:28)
[2017-02-26] MEDS ORDERED: TIGHT: 0.2 ML/HR MISC PRN (09:28)
[2017-02-26] MEDS: ZOLOFT PO SCH (09:35)
[2017-02-26] MEDS: COREG PO SCH (09:35)
[2017-02-26] MEDS: XANAX PO SCH (09:35)
[2017-02-26] MEDS: NORVASC PO SCH (09:35)
[2017-02-26] MEDS: NEXIUM PO SCH (09:36)
[2017-02-26] MEDS: HEPARIN SUBQ SCH (09:36)
--- NOTE | 2017-02-26 12:01 | PROGRESS NOTE ---
DATE: 02/26/2017 Ms. Felipe is better. I think the nausea is better, feels a little better. She is going to get hemodialysis I think today. Temp 98.3 degrees, pulse 94, respirations 22, blood pressure 157/90. Lungs: Are clear in all lung alvarado. Cardiovascular: Regular rhythm and rate without murmur or S3. Abdomen: Soft. Skin: Is warm and dry. LABORATORY: Review of lab from yesterday, hematocrit stable at 27. Electrolytes unremarkable. ASSESSMENT AND PLAN: 1. Treating her for peritonitis. Continue present antibiotics. 2. Nausea and vomiting. We checked a flat and upright. I started her on some Reglan which I think has helped. Continue to follow hemoglobin, hematocrit. Present antibiotic, continue ceftazidime and vancomycin. 3. Diabetes mellitus type 2. Sugars under control. 4. History of gastroesophageal reflux disease. Review of orders: I do not see any significant change at this time. She is on Skelaxin 800 mg b.i.d. p.r.n. I started her on Reglan 10 mg p.o. q.a.c. and at bedtime. Zoloft 100 mg a day. Norvasc 10 mg a day. Xanax 2 mg b.i.d. She is getting heparin 5000 units subcutaneous q.12 hours. We are using Apresoline IV p.r.n. She is getting hydrocodone for pain. cc: Renny Okeefe MD
[2017-02-26] MEDS ORDERED: PHENERGAN ONE (12:35)
--- NOTE | 2017-02-26 13:30 | PROGRESS NOTE ---
DATE: 02/26/2017 SUBJECTIVE: She is able to eat without nausea or vomiting. Abdominal pain has abated. Bowels are working. No shortness of breath. OBJECTIVE: Vital Signs: Blood pressure 157/90, heart rate 94, respirations 22, afebrile. Generally: She is in no acute distress. She is currently on dialysis. Conjunctivae are pink. Pupils are equal. Neck: Neck veins are not distended. Heart: Regular without gallops or murmurs. Lungs: Have equal breath sounds. No crackles or wheezes. Abdomen: Soft, nontender. Bowel sounds are present. Extremities: Have no edema, clubbing, or cyanosis. LABORATORY DATA: Sodium 137, potassium 4.4, chloride 97, bicarbonate 26, BUN 42, creatinine 7.3. Hemoglobin 8.6. PD fluid cell count 37 on last evening. IMPRESSION: 1. End-stage renal disease. Continue routine hemodialysis. 2. Peritonitis. We will complete treatment with vancomycin and Fortaz. Okay for discharge from my perspective. 3. Anemia, below target but stable. cc: Venkat Almeida MD
[2017-02-26 15:15] VITALS: BP 127/89
--- NOTE | 2017-02-26 16:42 | DISCHARGE SUMMARY ---
ADMISSION DATE: 02/19/2017 DISCHARGE DATE: 02/26/2017 This is a 46-year-old, female, admitted on 02/19/2017, discharged on 02/26/2017. Well known to our service. She has a history of end-stage renal disease, on hemodialysis recently. Had a peritoneal dialysis catheter placed in preparation for peritoneal dialysis. She was complaining of bilateral lower quadrant pain over the past few days. Saw Dr. Almeida in the office and analysis of PD fluid as well as swab of the site where the PD catheter entered the peritoneum revealed some culture I believe that grew out group D enterococcus and she was admitted for possible peritonitis although initially the infection may just be around the catheter site. The fluid did show some white blood cells. She was put on some antibiotics. PAST MEDICAL HISTORY: 1. End-stage renal disease, on hemodialysis Tuesday, , and Saturdays. 2. Hypertension. 3. Diabetes mellitus type 2. 4. History of DVT. 5. History of CVA. 6. Gastroesophageal reflux disease. 7. Chronic pain. 8. Anxiety. 9. Hypertension. SURGICAL HISTORY: She has had a PD catheter in the past. She also had AV fistula placed. Has been on hemodialysis for awhile. History of gastric bypass, cholecystectomy and hysterectomy. She was put on antibiotics. Dr. Melissa was following and she remained afebrile. She received some hemodialysis and did a couple attempts of washout with peritoneal using the peritoneal catheter. Clinically improved. She still had some nausea and she felt like she was ready go home. Dr. Almeida felt like she was ready go home on 02/26/2017. Plan is to continue her antibiotics and will follow up with Dr. Almeida for dialysis. Continue the vancomycin and Fortaz I think with dialysis and this has been arranged. Her anemia was stable. [place] like she could go home. DISCHARGE MEDICATIONS: She is on Xanax 2 mg p.o. b.i.d., Norvasc 10 mg a day, Coreg 25 mg b.i.d. She will get her ceftazidime I think 2 g following dialysis approximately every 48 hours. She gets Epogen 74282 units Tuesday, Wednesdays, and Fridays. Nexium 40 mg a day. Haldol 2.5 to 5 mg p.o. at bedtime, and [place] she is getting I think 10 mg q.4 hours p.r.n. Skelaxin 800 mg b.i.d. p.r.n. Zoloft 100 mg q.a.m. cc: Renny Okeefe MD
[2017-02-26] MEDS ORDERED: VANCOMYCIN 1 GM/NS 1 GM/250 ML IVPB IV ONE (17:00)
== END 2017-02-26 17:05 | disposition home or self-care (01) ==
LOC: ED 11:09 → 4N 17:07 → SUATTDRO 17:07 → 3N 02-21 16:11
PROVIDERS: ATTEND Emergency Medicine

== ENCOUNTER 2018-08-23 06:53 | Inpatient (IN) ==
--- NOTE | 2018-08-23 08:23 | EKG Report ---
Test Performed on : 08/23/2018 07:32:25 AM Test Reason : KH Blood Pressure : / mmHG Vent. Rate : 073 BPM Atrial Rate : 073 BPM P-R Int : 084 ms QRS Dur : 080 ms QT Int : 456 ms P-R-T Axes : 079 013 -32 degrees QTc Int : 502 ms Sinus rhythm. with short [place] with premature atrial complexes. with aberrant conduction. Anterior infarct , age undetermined Prolonged QT Abnormal ECG When compared with ECG of 09-JUN-2018 21:00, aberrant conduction. is now present WV interval has decreased Vent. rate has decreased BY 36 BPM Nonspecific T wave abnormality now evident in Inferior leads T wave inversion now evident in Anterolateral leads Unconfirmed Result
[2018-08-23] MEDS ORDERED: APRESOLINE IV ONE ×2 (08:26→09:53)
[2018-08-23] MEDS ORDERED: BENADRYL IV ONE (08:27)
[2018-08-23] MEDS ORDERED: SODIUM CHLORIDE 0.9% INJ ONE (08:27)
[2018-08-23] MEDS ORDERED: PHENERGAN IV ONE (08:27)
--- NOTE | 2018-08-23 08:31 | PROVIDER DOCUMENTATION ---
HPI-Headache - General Chief Complaint: Headache Stated Complaint: HEADACHE/ POSS.KIDNEY FAILURE Time Seen by Provider: 08/23/18 08:07 Source: patient Allergies/Adverse Reactions: Patient Allergies Allergy/AdvReac Type Severity Reaction Status Date / Time ketorolac tromethamine * Allergy Intermediate HIVES Verified 08/23/18 07:34 [From Toradol] pregabalin [From Lyrica] Allergy Intermediate SWELLING Verified 08/23/18 07:34 tramadol HCl * [From Ultram] Allergy Intermediate HIVES Verified 08/23/18 07:34 morphine AdvReac Intermediate HEADACHE Verified 08/23/18 07:34 Home Medications: Home Medication List Medication Instructions Recorded Confirmed Last Taken Type Carvedilol [Coreg] 25 mg PO BID #60 tablet 07/12/16 05/02/18 10/01/17 Rx Amlodipine Besylate 10 mg PO DAILY 02/07/17 05/02/18 10/01/17 History Folic Acid 1 mg PO DAILY #30 tab 06/12/17 05/02/18 10/01/17 Rx Oxycodone HCl/Acetaminophen 1 ea PO Q4-6H PRN PRN #20 tab 10/02/17 08/23/18 Unknown Rx [Percocet 7.5-325 mg Tablet] Alprazolam 1 mg PO QHS 05/02/18 08/23/18 Unknown History Lisinopril 40 mg PO DAILY 05/02/18 05/02/18 Unknown History Metaxalone 800 mg PO BID 05/02/18 05/02/18 Unknown History Methocarbamol 500 mg PO TID 05/02/18 05/02/18 Unknown History Vortioxetine Hydrobromide 20 mg PO DAILY 05/02/18 08/23/18 Unknown History [Trintellix] Clonidine [Catapres] 0.2 mg PO BID #60 tab 05/06/18 08/23/18 08/23/18 05:00 Rx Hydralazine [Apresoline] 25 mg PO TID #90 tab 05/06/18 Unknown Rx Hydrochlorothiazide 25 mg PO DAILY #30 tab 05/06/18 Unknown Rx Divalproex Sodium 500 mg PO HS 08/23/18 08/23/18 Unknown History Zolpidem [Ambien] 10 mg PO QHS 08/23/18 08/23/18 Unknown History - History of Present Illness-Headache Nature of Presenting Problem: 48yom present to ER with c/o headache and HTN. Pt has hx of HTN. Pt had hemodialysis yesterday. Pt reports taking hydralazine, clonidine, and oxycodone earlier this morning. Pt states this feels like her "normal headache". No neuro deficits noted. Headache Location: reports: global Quality of Pain: reports: aching Onset/Duration: reports: 24 hours ago Timing: reports: still present Headache History: reports: frequent headaches Headache severity at the maximum: moderate Headache Exacerbated by:: reports: light, noise Associated Symptoms: reports: headache. denies: short of breath, chest pain, fever/chills, loss of consciousness, nausea, numbness in legs/feet, paresthesia , diaphoretic, slurred speech, tingling in legs/feet, vomiting, vision changes, weakness Review of Systems - Adult - REVIEW OF SYSTEMS - ADULT Constitutional: reports: no symptoms reported. denies: chills, fever Eyes: reports: no symptoms reported Ears, Nose, Mouth & Throat: reports: no symptoms reported Cardiovascular: reports: no symptoms reported. denies: chest pain, orthopnea, palpitations Respiratory: reports: no symptoms reported. denies: shortness of breath, wheezing Gastrointestinal: reports: no symptoms reported. denies: abdominal pain, diarrhea, nausea, vomiting Genitourinary: reports: no symptoms reported Musculoskeletal: reports: no symptoms reported Integumentary: reports: no symptoms reported Neurological: reports: see HPI, headache/migraines. denies: dizziness/vertigo, numbness, paresthesia, slurred speech, syncope Psychiatric: reports: no symptoms reported Endocrine: reports: no symptoms reported Hematologic/Lymphatic: reports: no symptoms reported Allergic/Immunologic: reports: no symptoms reported All Other Systems: Reviewed and Negative Past History - Adult - PAST MEDICAL HISTORY-ADULT Review of Records: reports: Old Records Reviewed, Nursing Assessment Review, Medications Reviewed Major Childhood Illnesses: reports: denies history Cardiovascular: reports: HTN Respiratory: reports: denies history Gastrointestinal: reports: GERD, ulcer Obstetrical/Gynecological: reports: denies history Genitourinary: reports: dialysis (T,Th, Sat), kidney disease Musculoskeletal: reports: chronic pain, intervertebral disc disease Neurological: reports: CVA, headaches/migraines Psychiatric: reports: depression Endocrine/Immune: reports: Diabetes Other Conditions: reports: denies history - PRIOR SURGERIES/PROCEDURES Surgical/Procedure History: reports: cholecystectomy, hysterectomy, , indwelling device, hernia repair, orthopedic (extremity), gastric bypass - PRIOR HOSPITALIZATIONS Prior Hospitalizations: reports: for other non-related - IMMUNIZATION STATUS Childhood Immunizations: See Nurse Assessment Flu Vaccine: See Nurse Assessment - FAMILY HISTORY Family History: reviewed, not pertinent Physical Exam- Neurological - Physical Exam-Neuro Initial Vital Signs Reviewed: Yes General Appearance: alert, mild distress Eye Exam: bilateral eye: normal inspection, PERRL, EOMI HENMT: moist mucous membranes, normal ENT inspection Head Injury: no evidence of injury Neck: non-tender, full range of motion, supple, normal inspection Respiratory: lungs clear, normal breath sounds Cardiovascular: regular rate, rhythm Extremity: normal range of motion, normal 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, 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 Exam: normal speech, PERRL Coordination/Gait: normal finger to nose, normal gait, negative Romberg's sign Motor/Sensory: no motor deficit, no sensory deficit Neurologic: grossly normal Integumentary: normal color, normal turgor, warm/dry Psych/Mental Status: normal mood/affect, oriented x 3 - Glascow Coma Scale Best Eye Response: (4) open spontaneously Best Verbal Response: (5) oriented Best Motor Response: (6) obeys commands Progress - PLAN OF CARE/RESULTS Progress/Plan/Lab Results: Vital Signs - 8 hr 08/23/18 07:17 08/23/18 07:39 08/23/18 09:18 Temperature 98.6 F Pulse Rate 76 57 L 102 H Respiratory Rate 16 16 12 Blood Pressure 195/129 221/149 254/152 O2 Sat by Pulse Oximetry 100 98 99 08/23/18 09:39 08/23/18 09:57 08/23/18 10:20 Temperature Pulse Rate 80 73 82 Respiratory Rate 20 25 H 17 Blood Pressure 253/141 261/131 213/166 O2 Sat by Pulse Oximetry 98 98 08/23/18 10:34 08/23/18 11:39 Temperature Pulse Rate 75 82 Respiratory Rate 19 24 Blood Pressure 220/139 220/162 O2 Sat by Pulse Oximetry 98 97 Laboratory Results - last 24 hr 08/23/18 08/23/18 08/23/18 11:40 11:40 11:40 WBC 6.40 RBC 5.00 Hgb 14.0 Hct 40.6 MCV 81.2 MCH 28.0 MCHC 34.5 RDW Std Deviation 14.3 Plt Count 104 L MPV 11.2 H Immature Gran % (Auto) 0.5 Neut % (Auto) 87.3 H Lymph % (Auto) 8.3 L [place] % (Auto) 3.4 Eos % (Auto) 0.3 Baso % (Auto) 0.2 Immature Gran # (Auto) 0.03 Neut # (Auto) 5.59 Lymph # (Auto) 0.53 L [place] # (Auto) 0.22 Eos # (Auto) 0.02 Baso # (Auto) 0.01 Segmented Neutrophils 90 H Lymphocytes 8 L Monocytes 2 Anisocytosis 1+ PT 13.3 INR 0.96 PTT (Actin FS) 33.2 Sodium 132 L Potassium 4.2 Chloride 95 L Carbon Dioxide 20 L Anion Gap 17 BUN 25 H Creatinine 7.1 H Estimated GFR/1.73 m2 6 BUN/Creatinine Ratio 4 Glucose 168 H Calculated Osmolality 273 Calcium 8.6 L Total Bilirubin 0.80 AST 34 H ALT 22 Alkaline Phosphatase 72 Creatine Kinase 154 Troponin T Total Protein 7.1 Albumin 4.0 Globulin 3.0 Albumin/Globulin Ratio 1.0 08/23/18 11:40 WBC RBC Hgb Hct MCV MCH MCHC RDW Std Deviation Plt Count MPV Immature Gran % (Auto) Neut % (Auto) Lymph % (Auto) [place] % (Auto) Eos % (Auto) Baso % (Auto) Immature Gran # (Auto) Neut # (Auto) Lymph # (Auto) [place] # (Auto) Eos # (Auto) Baso # (Auto) Segmented Neutrophils Lymphocytes Monocytes Anisocytosis PT INR PTT (Actin FS) Sodium Potassium Chloride Carbon Dioxide Anion Gap BUN Creatinine Estimated GFR/1.73 m2 BUN/Creatinine Ratio Glucose Calculated Osmolality Calcium Total Bilirubin AST ALT Alkaline Phosphatase Creatine Kinase Troponin T 0.078 Total Protein Albumin Globulin Albumin/Globulin Ratio Orders Category Date Time Status CBC WITH DIFF [HEME] Stat Lab 08/23/18 11:40 Completed CK PROFILE [SP CHEM] Stat Lab 08/23/18 11:40 Completed COMPREHENSIVE METABOLIC PANEL [CHEM] Stat Lab 08/23/18 11:40 Completed PT [PROTIME WITH INR] [COAG] Stat Lab 08/23/18 11:40 Completed PTT [COAG] Stat Lab 08/23/18 11:40 Completed TROPONIN T Stat Lab 08/23/18 11:40 Completed Dextrose 5%-Water Inj [D5w] 250 ml Med 08/23/18 12:15 Discontinued Nitroprusside [Nipride] 100 mg IV As Directed Diphenhydramine [Benadryl] Med 08/23/18 08:27 Discontinued 25 mg IV NOW ONE Hydralazine [Apresoline] Med 08/23/18 08:26 Discontinued 10 mg IV NOW ONE Hydralazine [Apresoline] Med 08/23/18 09:53 Discontinued 20 mg IV NOW ONE Labetalol Med 08/23/18 10:49 Discontinued 10 mg IV NOW ONE Nicardipine 20 mg/Ns [Cardene 20 mg/Ns] Med 08/23/18 13:00 Active 20 mg in 200 ml IV As Directed Promethazine [Phenergan] Med 08/23/18 08:27 Discontinued 25 mg IV NOW ONE Sodium Chloride 0.9% Med 08/23/18 08:27 Discontinued 10 ml INJ NOW ONE EKG [EKG] Routine Ther 08/23/18 Draft Result Diagrams: 08/23/18 11:40 08/23/18 11:40 - REASSESSMENT Reassessment #1 Time Reassessed: 09:32 (Pt sleeping, appears in no distress. BP still elevated, will re-evaluate ) Reassessment #2 Time Reassessed: 09:54 (pt sleeping BP 261/135. Additional order placed for hydralazine. Discussed with Dr Ha, who agrees) Reassessment #3 Time Reassessed: 10:50 (BP 250/135. Pt continues to sleep. Additional orders placed. Discussed pt with Dr Ha, who agrees with treatment plan thus far.) Reassessment #4 Time Reassessed: 12:10 (BP 254/162. Discussed with Dr Ha. Will plan to order Nipride drip and admit pending labs) - CONSULTS/PCP/HOSPITALIST Notification #1 *Consult/PCP/Hospitalist*: Dr Grajeda, hospitalist Time Discussed: 12:25 (Possible admission for HTN emergency and renal failure) Reason/Comments: Request to stop Nipride and order Cardene Consult Disposition: Will see in ED, Admit Departure - Departure Date of Disposition Decision: 08/23/18 Time of Disposition Decision: 12:26 DIAGNOSIS: ESRD (end stage renal disease) on dialysis, Hypertensive emergency Disposition: ADMITTED INPATIENT 09 Certified Medical Emergency: Emergent Condition: Fair Referrals and Follow-Ups: None,PCP [Primary Care Provider] - - Critical Care Note This patient required my direct & personal management of CC.: No Attestation - Physician/ MENDOZA Attestation Patient care was provided by Advanced Practice Provider:: Yes Advanced Practice Provider:: Kim Underwood Advanced Practice Provider documentation review:: The Mid-level provider documentation, treatment plan and medical decision making was reviewed by the physician who agrees with all treatment and medical decision making by the MLP. The physician spent face to face time with patient:: No Advanced Practice Provider documentation review:: Supervising physician onsite and consulted in the evaluation and care of this patient. The physician did not have a face to face encounter with the patient.
[2018-08-23] MEDS ORDERED: LABETALOL IV ONE (10:49)
[2018-08-23 11:57] LABS: BASO# 0.01 X1000 (0.0-0.2); BASO% 0.2 % (0.0-0.8); EOS# 0.02 X1000 (0.0-0.7); EOS% 0.3 % (0.0-10.0); HEMATOCRIT 40.6 % (37.0-47.0); IMM GRAN# 0.03 X1000 (0.0-0.04); IMM GRAN% 0.5 % (0.0-0.5); LYMPH# 0.53 X1000 (1.2-3.4); LYMPH% 8.3 % (20.5-51.1); MCHC 34.5 g/dL (33-37); MCV 81.2 FL (81-99); MONO# 0.22 X1000 (0.11-0.59); MONO% 3.4 % (1.7-9.3); MPV 11.2 FL (7.4-10.4); NEUT# 5.59 X1000 (1.4-6.5); NEUT% 87.3 % (42.2-75.2); PLT 104 X1000 (130-400); RDW 14.3 % (11.5-14.5)
[2018-08-23 12:11] LABS: CALCIUM 8.6 mg/dL (8.8-10.2); POTASSIUM 4.2 mmol/L (3.5-5.1); TOTAL BILIRUBIN 0.8 mg/dL (0.20-1.00); TOTAL PROTEIN 7.1 g/dL (6.3-8.3)
[2018-08-23 12:12] LABS: CREATININE 7.1 mg/dL (0.5-0.9)
[2018-08-23] MEDS ORDERED: NIPRIDE 100 MG in D5W 250 ML IV SCH (12:15)
[2018-08-23 12:21] LABS: INR 0.96; PROTIME 13.3 Seconds (11.0-16.0)
[2018-08-23 12:22] LABS: PTT 33.2 Seconds (22.3-41.8)
[2018-08-23 12:30] LABS: ANISOCYTOSIS 1+; LYMPHS 8 % (21-51); MONO 2 % (1-9); SEGS 90 % (42-75)
[2018-08-23] MEDS: CARDENE 20 MG/NS 20 MG/200 ML PIGGYBACK IV SCH ×2 (12:45→13:22)
[2018-08-23] MEDS ORDERED: ATIVAN ONE (12:53)
[2018-08-23] MEDS ORDERED: ATIVAN IV ONE ×2 (13:00→15:26)
[2018-08-23] MEDS ORDERED: NITROGLYCERIN TOP ONE (13:09)
[2018-08-23] MEDS ORDERED: CEREBYX 1,000 MG in NS 50 ML IV ONE (13:18)
--- NOTE | 2018-08-23 14:03 | Diag Imaging Result Doc PS360 ---
CT HEAD W/O CONTRAST - 08/23/2018 INDICATION: htn, headache COMPARISON: 05/02/2018 FINDINGS: There are extensive bilateral posterior cerebral hemisphere hypodensities, similar to prior. No intracranial mass or hemorrhage. The skull is intact. The sinuses are clear. IMPRESSION: Stable significant abnormalities of the posterior cerebral hemispheres suggesting posterior reversible encephalopathy syndrome. This has clearly progressed since 07/09/2017. This exam was performed using automated exposure control, adjustment of mA or kV according to patient size, and/or use of iterative reconstruction technique Electronically signed by Gerald Grossman 08/23/2018 2:01 PM
--- NOTE | 2018-08-23 15:03 | HISTORY AND PHYSICAL ---
PRIMARY CARE PHYSICIAN: None. SALES ACCOUNT REPRESENTATIVE: Dr. Almeida. CHIEF COMPLAINT: Headache. HISTORY OF PRESENTING ILLNESS: This is a 48-year-old female who presents to [facility] ER with complaints of a headache and high blood pressure. She states she had hemodialysis yesterday, and that she took her medications this morning of hydralazine, clonidine, and oxycodone. Her blood pressure on arrival was 195/129, it went up over a 2 hour time period when she was in the ER to as high as 261/131. She was started on a Cardene drip, and approximately 5 minutes after starting this drip she had a witnessed seizure in the emergency room. She is now postictal and unable to answer any questions. We did do a CT of the head that showed stable significant abnormalities of the posterior cerebral hemispheres suggesting posterior reversible encephalopathy syndrome. She will be admitted to the intensive care unit at the [facility] for further evaluation and treatment. PAST MEDICAL HISTORY: Hypertension, headaches, GERD, diabetes type 2, end-stage renal disease with dialysis on Tuesday, , Tuesday, CVA, and depression. PAST SURGICAL HISTORY: Cholecystectomy, hysterectomy, , hernia repair, and gastric bypass. FAMILY HISTORY: Reviewed and noncontributory. SOCIAL HISTORY: She currently lives with family. Denies any tobacco, alcohol or illicit drug use according to previous ER and medical record. ALLERGIES: Ketoralac, pregabalin, tramadol and morphine. HOME MEDICATIONS: We will need to obtain a current list, review, and then restart those as appropriate. I will place an order for nursing to update and confirm home medications. LABORATORY DATA: White blood cell count of 6.40, hemoglobin 14, hematocrit 40.6 and platelets 104,000. PT and INR of 13.3 and 0.96. Sodium of 132, potassium 4.2, chloride 95, CO2 20, BUN of 25, creatinine 7.1, and glucose 168. Cardiac enzyme was negative. CT of the head showed stable significant abnormalities of the posterior cerebral hemispheres suggesting posterior reversible encephalopathy syndrome that has clearly progressed since 07/09/2017. EKG showed sinus rhythm with short NC with premature atrial complexes with aberrant conduction at 73. REVIEW OF SYSTEMS: Unable to obtain from patient, but in the medical record and ER record it says that she presented with a headache. PHYSICAL EXAMINATION: On arrival, she had a temperature of 98.6 degrees, pulse 76, respirations 16, and blood pressure 195/129. Blood pressure went as high as 261/131. Currently, it is down to 163/109. GENERAL: This is a 48-year-old female who is lying in the bed. He is postictal, and does not respond to verbal stimuli or sternal rub. HEENT: Appears normocephalic and atraumatic. Normal ENT inspection. Oropharynx and nares are clear. EYES: Pupils are equal, round, and reactive to light and accommodation. Unable to assess extraocular movements at this time. NECK: Supple. Normal inspection. Normal range of motion. LUNGS: Clear to auscultation bilaterally with equal lung expansion and chest wall movement. HEART: Regular rate and rhythm. No murmurs, rubs, or gallops. ABDOMEN: Soft, nontender, and nondistended. Bowel sounds are present x4 quadrants. MUSCULOSKELETAL: Unable to assess extremity strength at this time. NEUROLOGICAL: Unable to obtain a neurological exam from patient at this time as she is postictal. ASSESSMENT: 1. Hypertensive urgency. 2. Seizure. 3. Headache. 4. End-stage renal disease with dialysis on Tuesday, , Tuesday. PLAN: She will be admitted to the [facility] to the intensive care unit, and placed on telemetry. Held NPO. We will consult Neurology and Nephrology. She is on a Cardene drip. She did receive Cerebyx 1000 mg IV x1. We will check a Dilantin level in the morning along with a CBC, CMP, and nursing to update and confirm home medicines. We will restart those as appropriate when she is no longer postictal and is alert and awake. Further orders after being seen by attending and hr shared services consultant. Dictated by GARCIA Nam for Mitch Grajeda MD cc: GARCIA Nam MD
--- NOTE | 2018-08-23 15:58 | CONSULTATION ---
DATE OF CONSULTATION: 08/23/2018 HISTORY OF PRESENT ILLNESS: Ms. Felipe is 48 years old and history sounds like seizure associated with extreme elevated blood pressure earlier today. History from firsthand family witness at the bedside is that she had reported headache. She seemed a little bit confused and then her eyes rolled up. She had rigidity in the limbs and generalized shaking in the limbs for a few minutes. She has had postictal obtundation since then. Past history is remarkable for hypertension, chronic renal failure managed with hemodialysis, and she had what may have been a very similar episode of seizure associated with extreme hypertension about 3-1/2 months ago. Some family present now witnessed that episode and reports features were very similar. She was treated with medicine for seizure control short term while hospitalized 3 months ago and discharged without seizure medicine. Family reports she has done well since then, and she has not had seizure or other periods of altered awareness or altered consciousness since hospital discharge 3-1/2 months ago. Family is not certain about all of her medicines. They believe she takes them correctly, but they do not supervise her medicine. She has medicines for high blood pressure and for pain. Workup includes noncontrast CT showing some posterior atrophy, which corresponds to the posterior edema noted on scans a few months ago. Features then were thought to be consistent with a posterior reversible encephalopathy syndrome. PHYSICAL EXAMINATION: On exam now, she is supine, initially appeared to be sleeping, but was easily waked. She followed some simple commands. She answered simple questions. When not vigorously stimulated or involved in conversation, she seemed to drift quickly back to sleep. She reports symmetric sensation on gross testing over the limbs. She demonstrated good power in the limbs. Tone is symmetric in the limbs. She was not attentive to finger-to- nose testing. I did not test her gait. Reflexes are 1+ at the wrists and absent at the ankles bilaterally. She has full lateral eye movement with passive head turning. Pupils are about 4 mm and both react to bright light. Facial motility appears symmetric. Head is unremarkable. Neck is supple without meningismus. IMPRESSION: Global encephalopathy, apparently postictal with prior generalized seizure associated with extreme elevated blood pressure. This sounds like another episode of hypertensive encephalopathy with seizure, similar to what she had several months ago. Family is not certain that she takes her blood pressure medicine. I believe that she may have benzodiazepine prescribed and we do not have urine drug screen reported now. Benzodiazepine withdrawal would be another possible explanation for seizure. At this point, she seems to be slowly recovering. I do not have any urgent suggestion. We can plan electroencephalogram when available. Most important will be to control her blood pressure. We will likely need followup imaging when practical. Decision on recommendation for medicine for seizure control will depend on her clinical course and electroencephalogram report. Thanks for asking Neurology to see Ms. Felipe again. cc: MD BK Reis III
--- NOTE | 2018-08-23 16:19 | HISTORY AND PHYSICAL ---
ADDENDUM REPORT SUBJECTIVE: The patient has no focal complaints. She came in for elevated blood pressure. She is an end-stage renal patient, has hypertension. She has a history of poorly controlled hypertension due to various reasons. She had posterior reversible encephalopathy syndrome previously. She came in with a very elevated blood pressure. She was given several medications and started on Cardene. At some point during her workup, I think after Cardene, she had a generalized tonic-colonic seizure. She has had 1 episode before, again associated with the PRES. She still has persistent issues there. Her exam is really nonfocal. She is kind of sedated after getting Ativan. PROBLEM LIST: 1. Uncontrolled malignant hypertension. We will continue blood pressure control. I will continue Cardene. I think Nipride may be difficult because she has end-stage renal and may have issues with the metabolites. 2. Posterior reversible encephalopathy syndrome. I think likely this is the mechanism of her seizures. We will get a Neurology consult and pursue MRI. If there is no evidence of stroke, can pursue possible EEG per Neurology's recommendations. DISPOSITION/COMPLEXITY: Pending her clinical status. She is on IV Cardene with malignant hypertension, so this is a critical care note of at least 35 minutes' time. We will continue to follow closely. She will need dialysis as well per Renal service. I believe she was dialyzed yesterday. cc: Mitch Grajeda MD
[2018-08-23] MEDS: SODIUM CHLORIDE 0.9% INJ SCH (16:50)
[2018-08-23] MEDS: PROTONIX IV SCH (16:50)
--- NOTE | 2018-08-23 16:55 | Diag Imaging Result Doc PS360 ---
MRI BRAIN W/O CONTRAST - 08/23/2018 INDICATION: cva COMPARISON: Head CT from earlier today FINDINGS: There is no area of restricted diffusion. There are stable chronic extensive hyperintensities in the posterior cerebral hemispheres bilaterally. These are compatible with gliosis from prior insults such as posterior reversible encephalopathy syndrome (PRES). No intracranial mass or hemorrhage. IMPRESSION: Stable significant changes most compatible with old posterior reversible encephalopathy syndrome. No acute process demonstrated. Electronically signed by Gerald Grossman 08/23/2018 4:53 PM
[2018-08-23] MEDS: APRESOLINE IV PRN (20:42)
[2018-08-23] MEDS: XANAX PO SCH (21:34)
[2018-08-23] MEDS: HEPARIN SUBQ SCH (21:34)
[2018-08-23] MEDS: DEPAKOTE PO SCH (21:34)
[2018-08-23] MEDS: CATAPRES PO SCH (22:54)
[2018-08-24 05:40] LABS: BASO# 0.04 X1000 (0.0-0.2); BASO% 0.8 % (0.0-0.8); EOS# 0.24 X1000 (0.0-0.7); EOS% 4.7 % (0.0-10.0); HEMATOCRIT 37.5 % (37.0-47.0); HEMOGLOBIN 12.4 g/dL (12.0-16.0); LYMPH# 1.75 X1000 (1.2-3.4); LYMPH% 34.2 % (20.5-51.1); MCH 28.1 PG (27-31); MCHC 33.1 g/dL (33-37); MONO# 0.51 X1000 (0.11-0.59); MPV 10.8 FL (7.4-10.4); NEUT# 2.58 X1000 (1.4-6.5); NEUT% 50.3 % (42.2-75.2); PLT 82 X1000 (130-400); RBC 4.41 XMIL (4.2-5.4); RDW 14.6 % (11.5-14.5); WBC 5.12 X1000 (4.8-10.8)
[2018-08-24] MEDS: ATIVAN IV PRN ×2 (05:45→08:23)
[2018-08-24 05:58] LABS: ALB/GLOB RATIO 1.3; ALBUMIN 3.5 g/dL (3.5-5.0); CALCIUM 8.1 mg/dL (8.8-10.2); POTASSIUM 4.6 mmol/L (3.5-5.1); TOTAL BILIRUBIN 0.69 mg/dL (0.20-1.00); TOTAL PROTEIN 6.3 g/dL (6.3-8.3)
[2018-08-24 06:01] LABS: CREATININE 8.8 mg/dL (0.5-0.9)
[2018-08-24] MEDS ORDERED: HEPARIN IV PRN (06:08)
[2018-08-24] MEDS ORDERED: TIGHT: 0.2 ML/HR FOR DIALYSIS MISC PRN (06:08)
[2018-08-24] MEDS ORDERED: NS 2,000 ML MISC PRN (06:08)
[2018-08-24] MEDS: TYLENOL PO PRN (08:22)
[2018-08-24] MEDS: CATAPRES PO SCH ×2 (08:23→23:49)
[2018-08-24] MEDS: HEPARIN SUBQ SCH ×2 (08:23→23:49)
--- NOTE | 2018-08-24 11:21 | PROGRESS NOTE ---
DATE: 08/24/2018 Ms. Felipe has not had any further seizures. Her postictal state has resolved. This morning, she reports persistent headache, but not as bad as the last day or 2. She told me that she checks her blood pressure at home and finds it usually 180s/120s. She reports blood pressure was over 200 when she checked it during bad headache yesterday. She does not recall the events of her hospitalization. She reports no seizure or other spell of altered awareness since her hospital discharge a few months ago. She reports she takes her medicines correctly. After I saw her yesterday, brain MRI was done, and that shows some gliosis and atrophy posteriorly consistent with resolution of the edema and reversible encephalopathy changes that were noted on scans a few months ago. There is no acute finding on that current scan. EEG is ordered. BP is much better today. I do not think we need to do anything urgently from neurologic standpoint. Depending on the EEG report, we can make a decision about seizure medicine recommendation. Thanks for asking Neurology to see Ms. Felipe. cc: MD BK Reis III
--- NOTE | 2018-08-24 13:31 | NEPHROLOGY CONSULTATION ---
DATE: 08/24/2018 REASON FOR ADMISSION: Severe headache with elevated blood pressure. REASON FOR CONSULT: End-stage renal disease with an order to evaluate and treat. HISTORY OF PRESENT ILLNESS: Ms. Felipe is a 48-year-old female who is known to our outpatient services for hemodialysis on Tuesday, , Tuesday. The patient was seen on Tuesday without any complaints. She presented to [facility] Emergency Department at [facility] on 08/23/2018 with complaints of severe headache. She had stated that her blood pressure was elevated. She had taken her home medications in the morning of hydralazine , clonidine, and oxycodone. Her blood pressure remained elevated. In the emergency room, it was found to be as high as 261/131. The patient was subsequently started on a Cardene drip. After 1 minute, a witnessed seizure was recorded. She was postictal, unable to answer any questions. CT of the head showed stable significant abnormalities in posterior cerebral hemispheres suggesting posterior reversible encephalopathy syndrome. The patient was subsequently transferred to [facility] ICU. She is currently on hydralazine p.o. She is off of her drips. She is still slightly sluggish, though she states that her headache is feeling better. She denies any chest pain. No increased work of breathing. No increased lower extremity swelling. No nausea/vomiting, or diarrhea. No hematochezia or hemoptysis. No hematuria. No complaints of dysuria. No recent fever or chills. PAST MEDICAL HISTORY: End-stage renal disease with hemodialysis on Tuesday, , Tuesday, history of CVA, history of seizures, history of depression, hypertension, headaches, GERD, diabetes mellitus type 2, anemia of chronic disease, osteodystrophy of chronic disease. PAST SURGICAL HISTORY: Cholecystectomy, hysterectomy, section, hernia repair, gastric bypass, previous peritoneal dialysis catheter, previous dialysis tunneled catheter. She currently has an AV fistula. FAMILY HISTORY: She has a history of heart disease. No end-stage renal disease. SOCIAL HISTORY: She lives with her family. Denies tobacco, alcohol, or illicit drug use. ALLERGIES: Listed as ketorolac, pregabalin, tramadol, and morphine. HOME MEDICATIONS: Have been reviewed on her chart. REVIEW OF SYSTEMS: Review of systems times 10 with pertinent positives listed above in the HPI. OBJECTIVE: Patient's most recent vital signs: Last temperature 98.7 degrees, blood pressure 147/88, heart rate 72, respirations 14. She is currently on 2 L nasal cannula. Last recorded saturation is 100%. Laboratory Data: Sodium 136, potassium 4.6, chloride 99, CO2 of 20, BUN 34, creatinine 8.8, glucose 120, anion gap is 17, calcium 8.1, albumin 3.5. White count 5.12, hemoglobin 12.4, hematocrit 37.5, with a platelet count of 82,000. Previous pro- time 13.3 with an INR of 0.96, a PTT of 33.2. Intake and output: She has had 120 in with zero recorded out. PHYSICAL EXAMINATION: General: This is a 48-year-old female. She is resting quietly in bed. She appears chronically ill, though no acute distress. Skin: Warm and dry. HEENT: Normocephalic, atraumatic. Conjunctivae are pink. CRYTSAL. Mucous membranes are dry. Neck: Supple. Trachea midline. No JVD. Cardiovascular: She has regular rate and rhythm. She has an S4 present. Lungs: Clear to auscultation bilateral. Equal excursion on O2. Abdomen: Soft, nontender. Positive bowel sounds. Genitourinary: Not inspected. Minimal void. Dialysis assist. Extremities: She does have 2+ edema. Fistula noted to the left upper arm. Integumentary: Patient does have facial swelling and upper extremity swelling, nonpitting with generalized edema. Neurological: Alert and oriented x3. ASSESSMENT AND PLAN: 1. Chronic kidney disease, stage 5D. Today is patient's routine dialysis treatment today. We will place her on a 2 K bath. She is to dialyze for 3-1/2hours. We will attempt to pull 2 to 3 L of ultrafiltration. 2. Electrolytes and acid-base balance. These are acceptable. 3. Anemia. This is acceptable. 4. Altered mental status post seizure with postictal evaluation. This has resolved. 5. Hypertension. This has improved. Patient is currently controlled on hydralazine. She has been given lorazepam and off her Nipride drip. I would like to thank you for allowing us to consult with this patient. Dictated by GARCIA Villegas for Venkat Almeida MD Face to face encounter, data reviewed, discussed with Jeremiah Yanez on 08/24/18. I agree with the above assessment and plan of care. cc: GARCIA Villegas MD [facility]
--- NOTE | 2018-08-24 13:33 | PROGRESS NOTE ---
DATE: 08/24/2018 SUBJECTIVE: Patient resting in bed. No new complaints. OBJECTIVE: Vital signs: Temperature is 98.5 degrees, pulse 75, respirations 18, blood pressure 139/82, oxygen saturation is 100%. HEENT: She is atraumatic, normocephalic. Cardiovascular: S1, S2. Respiratory system: Has evidence of good air entry bilaterally. Abdomen: Soft, nontender. No masses felt. Extremities: No significant edema noted. Central nervous system: No obvious focal deficits noted. LABS: WBC is 5.13, hematocrit is 37.4 with a platelet count of 82,000. Sodium is 136, potassium 4.6, chloride 99, bicarb is 20, BUN is 34, creatinine 8.8. ASSESSMENT AND PLAN: 1. Hypertensive urgency. Blood pressure currently better controlled. We will maintain her on oral antihypertensives as well as parenteral agents as needed. 2. Seizure disorder. Maintain patient on antiepileptics and also place her on seizure precaution. 3. End-stage renal disease on hemodialysis. Continue hemodialysis as recommended by Nephrology. 4. Deep vein thrombosis prophylaxis. Heparin. 5. Gastrointestinal prophylaxis. Proton pump inhibitor. 6. Disposition. Patient can be transferred to the medical floor. cc: Klaus Betts MD
[2018-08-24] MEDS: PROTONIX IV SCH (23:49)
[2018-08-24] MEDS: DEPAKOTE PO SCH (23:49)
[2018-08-24] MEDS: XANAX PO SCH (23:49)
[2018-08-25] MEDS: CATAPRES PO SCH ×2 (10:08→22:50)
[2018-08-25] MEDS: HEPARIN SUBQ SCH ×2 (10:10→22:51)
--- NOTE | 2018-08-25 13:05 | PROGRESS NOTE ---
DATE: 08/25/2018 SUBJECTIVE: Patient resting in bed. She had complained of headaches which seem to have resolved. OBJECTIVE: Vital signs: Temperature is 99 degrees, pulse 78, respiratory rate 16, blood pressure 153/87. Oxygen saturation 99%. HEENT: Atraumatic and normocephalic. Cardiovascular: S1, S2. Respiratory: Evidence of good air entry bilaterally. Abdomen: Soft, nontender. No masses felt. Extremities: No evidence of edema. Central Nervous System: No obvious focal deficits noted. LABORATORY: Blood sugar is 113. ASSESSMENT AND PLAN: 1. Hypertensive urgency. Blood pressure now better controlled. Maintain patient on oral antihypertensive medications. 2. Seizure disorder. Continue antiepileptics and maintain patient on seizure precaution. 3. End-stage renal disease on hemodialysis. Continue hemodialysis as recommended by Nephrology. 4. Deep vein thrombosis prophylaxis. Heparin. 5. Gastrointestinal prophylaxis. Proton pump inhibitor. 6. Disposition. If the patient remains stable in the next 24 hours. I think she can be discharged home tomorrow. cc: Klaus Betts MD
--- NOTE | 2018-08-25 16:16 | NEPHROLOGY PROGRESS NOTE ---
DATE: 08/25/2018 SUBJECTIVE: She states she is feeling well. She ate breakfast. Her family brought her [employer]- A. No nausea or vomiting. No more seizures. Denies shortness of breath. OBJECTIVE: Vital Signs: Blood pressure 153/87, heart rate 78, afebrile. General: No acute distress. Skin: Warm, but diaphoretic. She states she is hot in the room. HEENT: Pupils are equal. Neck: Neck veins are not distended. Heart: Regular with S4. Lungs: Equal breath sounds. No crackles. Abdomen: Soft, nontender. Bowel sound present. Extremities: No cyanosis, clubbing, or edema. IMPRESSION: 1. Hypertensive emergency with seizures. Blood pressure control is improved. She is on oral only treatment at this time. Okay for discharge from my perspective whenever primary team feels it is safe. 2. Chronic kidney disease, 5D. Her next planned dialysis treatment will be tomorrow. Electrolytes and acid base are in target. cc: Venkat Almeida MD
--- NOTE | 2018-08-25 17:44 | PROGRESS NOTE ---
DATE: 08/25/2018 Ms. Felipe is awake, alert, attentive. She reports no headache. Her speech is not dysarthric. Language function is intact on brief bedside testing. She has not had any further seizure or other periods of altered awareness. Her EEG shows paroxysmal slowing in a worrisome pattern. This is likely resolving hypertensive encephalopathy. Since she has not had a clinical seizure, I think we can continue current management. She told me that divalproex 500 mg at bedtime was added after her last hospitalization for seizure management. I am not certain this is correct. No new suggestions from Neurology. If she has a clinical seizure, we might increase divalproex dose or add a different medicine for seizure control. I am optimistic that she will do well from a seizure standpoint with continued control of blood pressure. Thanks for asking Neurology to see Ms. Felipe. I will be glad to see her as an outpatient, if needed. cc: Adelaide England III, MD
[2018-08-25] MEDS: DEPAKOTE PO SCH (22:50)
[2018-08-25] MEDS: XANAX PO SCH (22:50)
[2018-08-25] MEDS: TYLENOL PO PRN (22:50)
[2018-08-25] MEDS: PROTONIX IV SCH (22:51)
[2018-08-25] MEDS: SODIUM CHLORIDE 0.9% INJ SCH (22:51)
[2018-08-26] MEDS: DILAUDID IV PRN ×2 (01:48→08:44)
[2018-08-26 03:47] VITALS: BP 197/106
[2018-08-26] MEDS: APRESOLINE IV PRN ×2 (04:11→10:23)
[2018-08-26] MEDS: TYLENOL PO PRN (04:11)
[2018-08-26] MEDS ORDERED: NS 2,000 ML MISC PRN (07:21)
[2018-08-26] MEDS ORDERED: HEPARIN IV PRN (07:21)
[2018-08-26] MEDS ORDERED: NORVASC PO SCH (09:00)
[2018-08-26] MEDS: CATAPRES PO SCH (13:20)
[2018-08-26] MEDS: HEPARIN SUBQ SCH (13:21)
--- NOTE | 2018-08-26 21:08 | NEPHROLOGY PROGRESS NOTE ---
DATE: 08/26/2018 SUBJECTIVE: She has had no further seizures. She has been able to eat. No other new complaints. She has plans for discharge today. OBJECTIVE: Vital Signs: Blood pressure 197/106. Heart rate 83, respirations 16, afebrile. Generally: No acute distress. Skin: Warm and dry. Neck: No neck vein distention. Heart: Mildly tachycardic with an S4. Lungs: Equal. No crackles. Abdomen: Soft, nontender. Bowel sounds present. Extremities: No edema, clubbing or cyanosis. IMPRESSION: Hypertensive crisis. Symptoms are resolved, but she does still have high blood pressure. She has clonidine and hydralazine at home. I instructed her to start taking her hydralazine twice daily in addition to clonidine. She has not been taking hydralazine. No other changes. She will be evaluated on dialysis on Tuesday. cc: Venkat Almeida MD
--- NOTE | 2018-08-26 23:41 | DISCHARGE SUMMARY ---
ADMISSION DATE: 08/23/2018 DISCHARGE DATE: 08/26/2018 DISPOSITION: Home. FOLLOWUP: 1. Dr. Almeida. 2. Dr. England. INVASIVE PROCEDURES DONE DURING THIS ADMISSION: None. IMAGING STUDIES OF SIGNIFICANCE: 1. A CT scan of the head was done on presentation that showed stable significant abnormality of the posterior cerebral hemispheres suggesting of PRES. 2. MRI was compatible with old posterior reversible encephalopathy syndrome. ADMISSION DIAGNOSES: 1. Hypertensive urgency. 2. Seizures. 3. Headaches. 4. End-stage renal disease, on hemodialysis Tuesdays, , and Saturdays. DIAGNOSES AT THE TIME OF DISCHARGE: 1. History of seizure disorder with witnessed seizure episode in the emergency room, likely due to hypertensive encephalopathy. 2. End-stage renal disease on hemodialysis. 3. Posterior reversible encephalopathy syndrome (PRES). DISCHARGE MEDICATIONS: 1. Alprazolam 1 mg at bedtime. 2. Trintellix 20 mg daily. 3. Hydralazine 25 mg 3 times per day. 4. Clonidine 0.2 b.i.d. 5. Zolpidem 10 mg at bedtime. 6. Divalproex 500 p.o. at bedtime. 7. Amlodipine 10 mg p.o. daily. PRESENTING COMPLAINT: Headaches. HISTORY OF PRESENTING COMPLAINT: Ms. Felipe is a 48-year-old female, history of end-stage renal disease on hemodialysis, who presented to the emergency department because of headaches with a blood pressure of 261/131. While undergoing evaluation in the ER, the patient had a witnessed tonic-clonic seizure. The patient was evaluated, was given Ativan, and was transferred to the ICU under Cardizem drip. HOSPITAL COURSE: Ms. Felipe's blood pressure was adequately managed, initially with IV drip, subsequently transitioned to her p.o. medications. She did have dialysis on the , which helped some with her blood pressure management, and she did not have any more seizures. The patient was evaluated by Dr. England, the neurologist, as well. During the hospital course, Ms. Felipe has continued to improve. Blood pressures continue to be under better control. This morning, she feels a lot better. The patient was evaluated by Nephrology yesterday, and they were okay for the patient to be discharged from their perspective. Today, Ms. Felipe denies any complaints, has not had any more seizures. Vitals have been reviewed, and they are stable. The patient is still running a little bit high on the blood pressures, but amlodipine has been added to her current medication plan. Ms. Felipe is therefore stable for discharge today. She has been advised to be consistent and compliant with her medication. She does not seem to have any primary care doctor, which she has been advised to get, and she is to follow up with Dr. Almeida and Dr. England. TIME SPENT FOR DISCHARGE: 36 minutes. cc: aSng Bland MD
--- NOTE | 2018-08-28 17:54 | EEG REPORT ---
DATE: 08/24/2018 REFERRING PHYSICIAN: Adelaide England III, MD. [employer] EQUIPMENT OPERATOR: Candis Grijalva. BACKGROUND INFORMATION/TECHNIQUE: This is a digitally recorded routine EEG with video. HISTORY: 71-he[age]-female patient with question of seizure. EEG is ordered to detect evidence of seizures. MEDICATIONS: Include P.R.N. lorazepam, Depakote, and Xanax. EEG FINDINGS: A well formed posterior dominant alpha rhythm is not visualized. The background at maximal alertness consists of mixed frequencies, alpha, beta, theta and some delta. Intermittent bursts of up to 10 seconds in duration are seen throughout the record. These bursts consist of generalized, relatively higher amplitude, polymorphic delta slowing with intermixed faster frequencies and at times a more semirhythmic delta slowing. No definite persistent focal slowing. No epileptiform discharges. No definite seizures. Hyperventilation was not performed. Photic stimulation induced a brief visualized driving response. The patient becomes drowsy and briefly enters into stage II sleep. EKG demonstrates regular RR intervals. IMPRESSION AND CLINICAL CORRELATION: Abnormal routine EEG due to: 1. Mild to moderate generalized slowing indicative of a mild to moderate nonspecific encephalopathy. 2. Intermittent bursts of delta slowing as detailed above of uncertain clinical significance. Clinical correlation is recommended. cc: MD Adelaide Hall III, MD [facility] CENTERRadha
== END 2018-08-26 15:16 | disposition home or self-care (01) | DRG 70 ==
LOC: P.ED 06:53 → ICU 17:48 → SUATTDRO 17:48 → 4N 08-24 16:24
PROVIDERS: ATTEND Internal Medicine
CPT/HCPCS: 70450; 70551; 80053; 80185; 82550; 82948; 84484; 85025; 85610; 85730; 93005; 95816; 96365; 96367; 96375; 99285; 99291; A9270; C9113; J0360; J1170; J1200; J1644; J2060; J2550; J7030; J7060; Q2009; S0164; XXXXX